=== PATIENT | male | born 1935 | race Caucasian/White ===

== ENCOUNTER 2018-09-02 06:19 | Day surgery (SDC) | payer OTHER ==
[2018-09-02] MEDS ORDERED: DIAZEPAM 5 MG TAB PO ONE (06:23)
[2018-09-02] MEDS ORDERED: FAMOTIDINE 20 MG TAB PO ONE (06:23)
[2018-09-02] MEDS ORDERED: ASPIRIN EC 325 MG TAB PO ONE (06:23)
[2018-09-02] MEDS ORDERED: diphenhydrAMINE 25 MG CAP PO ONE (06:23)
[2018-09-02] MEDS ORDERED: NS 1,000 ML IV ONE (06:23)
--- NOTE | 2018-09-02 06:25 | PDPROPOC ---
Sedation Plan of Care Sedation Plan of Care: mental status noted, patient educated of risks, benefits , alternatives, patient can tolerate sedation ASA Classification: ASA 2 Planned drugs: fentanyl, midazolam Mallampati Score: Class 2 Mallampati Reference Image: Patient passed 3-3-2 rule?: Yes
--- NOTE | 2018-09-02 06:26 | PDHPUP ---
History & Physical Update H&P update statement: This history and physical update is based on an assessment of the patient which was completed after admission or registration (within 24 hours), but prior to the surgery/procedure. H&P update: H&P reviewed & patient examined, no change in patient's condition since H&P completed
[2018-09-02] MEDS ORDERED: CLOPIDOGREL BISULFATE 75 MG TAB ONE (06:50)
[2018-09-02 06:54] LABS: PLATELET COUNT 130 10^3/uL (150-400)
[2018-09-02] MEDS ORDERED: LIDOCAINE 1% 300 MG/30 ML SDV ONE (07:01)
[2018-09-02] MEDS ORDERED: fentaNYL 100 MCG/2 ML INJ ONE (07:02)
[2018-09-02] MEDS ORDERED: IOPAMIDOL (ISOVUE-370) 150 ML BTL IV ONE (07:02)
[2018-09-02] MEDS ORDERED: MIDAZOLAM 2 MG/2 ML VIAL ONE (07:02)
[2018-09-02 07:03] LABS: INR 1.21 (0.83-1.16); PROTIME(PATIENT) 15.5 SEC (12.0-15.0)
[2018-09-02] MEDS ORDERED: HYDROCODONE/APAP 5/325 TAB PO PRN (08:39)
[2018-09-02] MEDS ORDERED: ONDANSETRON 4 MG/2 ML VIAL IVP PRN (08:39)
[2018-09-02] MEDS ORDERED: NITROGLYCERIN 0.4 MG BTL SL PRN (08:39)
[2018-09-02] MEDS ORDERED: OXYCODONE/APAP 5/325 TAB PO PRN (08:39)
[2018-09-02] MEDS ORDERED: ATROPINE SULFATE 1 MG/10 ML SYR IVP PRN (08:39)
[2018-09-02] MEDS ORDERED: CLOPIDOGREL BISULFATE 75 MG TAB PO SCH (09:00)
--- NOTE | 2018-09-02 13:22 | CPIP ---
[f rep st] INVASIVE CARDIAC PROCEDURE DATE OF PROCEDURE: 09/02/2018 INDICATION FOR PROCEDURE: Severe aortic stenosis, shortness of breath. PROCEDURE: 1. Nonselective left groin sheathogram. 2. 7-Swedish sheath left common vein. 3. Right heart catheterization using a [place]-Jabier catheter. 4. Bilateral coronary angiography. 5. Abdominal aortogram. HISTORY: Briefly, the patient is 83-year-old male with history of worsening shortness of breath. Herndon d an echocardiogram as an outpatient, which showed critical aortic stenosis. Given these findings, karely baugh is consented for right and left heart catheterization into anticipation for eventual AVR versu s TAVR. DESCRIPTION OF PROCEDURE: After informed consent, the patient was brought to [facility] where the left groin was prepped and draped in sterile fashion. Using lidocaine, a short 6-Swedish sheath in the left common femoral artery verified angiographically. 7-Swedish sheath placed in the le ft common femoral vein. [place]Jabier catheter was advanced. Wedge pressure was mean 19, A-wave 22, V-w ave 25. PA pressure systolic 41, diastolic 20, mean of 30. RV pressure systolic 38, diastolic 2, en d of 12. RA pressure mean of 9, A-wave 11, and V-wave 12. Cardiac output was measured to be 9.3 by Serenity with index of 4.7. The AO sat was 92%. PA sat was 75%. The [place]-Jabier catheter was then removed and the JL4 catheter was advanced to the left coronary artery . Images of the left coronary artery revealed normal prox left main. Distal left main had what appe ared to be a beak-like lesion at least 80% going into an LAD, ramus, and left circumflex artery. The left circumflex artery proximal had what appeared to be diffuse 70% disease, followed by the AV groo ve circumflex, which was normal. Just after the AV groove circumflex takeoff, there is another lesio n of 60% to 70%. Distally, the marginal 1 artery appeared to be widely patent, which bifurcated into 2 branches. The ramus intermedius had what appeared to be 20% to 30% disease proximally, but distal ly appeared to be widely patent. The LAD had what appeared to be a tubular, napkin ring lesion at le ast 50% at the takeoff of a diagonal artery. The diagonal artery had at least 60% to 70% proximal os tial disease. After these images were obtained, the JL4 catheter was removed. The JR4 catheter was advanced to right coronary artery. Images of the right coronary artery revealed normal ostial RCA. The proximal RCA had mild plaque disease. The mid RCA had a focal 80% to 90% le kennedy at the takeoff of an RV marginal branch. The distal RPD and RPLS appeared to be widely healthy and free of disease. After these images were obtained, the JR4 catheter was removed. The pigtail catheter advanced to the ascending aorta. Abdominal aortogram showed widely patent, but tortuous distal aorta, patent bilateral common, external, internal iliac arteries, patent bilateral c ommon femoral arteries. At this time, the pigtail catheter was removed over the 0.035 wire. Left gr oin was closed with manual pressure. Patient tolerated the procedure well with no complications. IMPRESSION: 1. Triple-vessel coronary artery disease in the form of distal left main, mid right coronary artery, proximal left circumflex artery, and moderate proximal left anterior descending disease, and high-gr sheldon diagonal artery disease. Normal cardiac output. 2. Patent aortoiliac conduits. PLAN: The patient will be taken off the table. We will obtain a carotid ultrasound. We will have t he patient discuss with CT surgery next week with Dr. Castillo at his followup appointment about CABG/AV R versus high-risk PCI/TAVR. /[id number]/MODL
== END 2018-09-02 12:25 | disposition home or self-care (01) ==
LOC: FCATH 06:19
PROVIDERS: ATTEND Internal Medicine Cardiovascular Disease
PROC: 4A023N8 Measurement of Cardiac Sampling and Pressure, Bilateral, Percutaneous Approach (ICD-10-PCS; principal; 2018-09-02)
PROC: B41D1ZZ Fluoroscopy of Aorta and Bilateral Lower Extremity Arteries using Low Osmolar Contrast (ICD-10-PCS; principal; 2018-09-02)
PROC: B2111ZZ Fluoroscopy of Multiple Coronary Arteries using Low Osmolar Contrast (ICD-10-PCS; principal; 2018-09-02)
PROC: B2161ZZ Fluoroscopy of Right and Left Heart using Low Osmolar Contrast (ICD-10-PCS; principal; 2018-09-02)
DX: I25.10 Atherosclerotic heart disease of native coronary artery without angina pectoris (principal); I35.0 Nonrheumatic aortic (valve) stenosis; R06.00 Dyspnea, unspecified; I12.0 Hypertensive chronic kidney disease with stage 5 chronic kidney disease or end stage renal disease; N18.6 End stage renal disease; Z99.2 Dependence on renal dialysis
CPT/HCPCS: J1644; J2250; J3010; Q9967

== ENCOUNTER → 2018-09-11 | Outpatient (CLI) | payer OTHER | LOC: FIMAGING 14:34 | PROVIDERS: ATTEND Thoracic Surgery (Cardiothoracic Vascular Surgery) | DX: I25.10 Atherosclerotic heart disease of native coronary artery without angina pectoris (principal); I35.0 Nonrheumatic aortic (valve) stenosis; I51.7 Cardiomegaly; J90 Pleural effusion, not elsewhere classified ==

== ENCOUNTER 2018-09-18 05:46 | Inpatient (IN) | payer OTHER ==
--- NOTE | 2018-09-17 11:04 | PDANEPAE ---
ANE History of Present Illness CAD, ANE Past Medical History - Cardiovascular History Hx Hypertension: Yes Hx Coronary Artery / Peripheral Vascular Disease: Yes Hx CHF / Valvular Disease: Yes Cardiovascular History Comment: CAD, - Pulmonary History Hx COPD: No Hx Asthma/Reactive Airway Disease: No Hx Recent Upper Respiratory Infection: No Hx Oxygen in Use at Home: No Hx Sleep Apnea: No - Neurologic History Hx Cerebrovascular Accident: No Hx Seizures: No Hx Dementia: No - Endocrine History Hx Diabetes: No Hypothyroid: No Hyperthyroid: No Obesity: no - Renal History Hx Renal Disorders: Yes Renal History Comment: ESRD - Liver History Hx Hepatic Disorders: No - Neurological & Psychiatric Hx Hx Neurological and Psychiatric Disorders: No - Cancer History Hx Cancer: No ANE Review of Systems Review of systems is: negative Review of Systems: ANE Patient History - Allergies Allergies/Adverse Reactions: Penicillins Allergy (Verified 08/28/18 11:10) Other-Enter Comments - Home Medications Home Medications: Aspirin [Aspirin 81mg (*)] 40.5 mg PO HS 08/28/18 [Last Taken 09/01/18 22:00] Cholecalciferol Vit D3 [Vitamin D3 2000 units tab (OTC)] 2,000 units PO DAILY [Last Taken 09/01/18 08:00] Herbals/Supplements -Info Only 1 ea PO DAILY 08/28/18 [Last Taken 09/01/18 08:00 ] Losartan Potassium [Cozaar 25 mg (*)] 25 mg PO DAILY 08/28/18 [Last Taken 05:00] Terazosin HCl [Hytrin 2 MG (*)] 4 mg PO HS 08/28/18 [Last Taken 09/01/18 22:00] amLODIPine BESYLATE [Norvasc 2.5 mg (*)] 2.5 mg PO HS 08/28/18 [Last Taken 09/01 22:00] - NPO status NPO Status: no food or drink >8 hours - Anes Hx Anes Hx: no prior problems - Smoking Hx Smoking Status: Never smoked Marijuana use: No - Alcohol Use Alcohol Use: Rarely - Family Anes Hx Family Anes Hx: none ANE Labs/Vital Signs - Labs Result Diagrams: 09/11/18 15:13 ANE Physical Exam - Airway Neck exam: FROM Mallampati Score: Class 2 Mouth exam: normal dental/mouth exam - Pulmonary Pulmonary: no respiratory distress, clear to auscultation - Cardiovascular Cardiovascular: regular rate and rhythym, no murmur, rub, or gallop - ASA Status ASA Status: IV ANE Anesthesia Plan Anesthesia Plan: general endotracheal anesthesia Lines/Monitors: arterial line, central line
[~2018-09-18 05:46] MED LIST: CHLORHEXIDINE GLUC HIBICLENS 118 ML BTL TP SCH
[2018-09-18] MEDS ORDERED: VERAPAMIL 5 MG, NITROGLYCERIN 2.5 MG, HEPARIN 500 UNIT, SODIUM BICARBONATE 0.2 MEQ in L... MISC ONE (06:00)
[2018-09-18] MEDS ORDERED: CARDIOPLEGIC SOLUTION 1,052.8 ML PF ONE (06:00)
[2018-09-18] MEDS ORDERED: INSULIN REGULAR HUMAN 100 UNIT in NS 100 ML IV ONE ×2 (06:00→09:30)
[2018-09-18] MEDS ORDERED: MUPIROCIN 2% 22 GM OINT NS ONE (06:00)
[2018-09-18] MEDS ORDERED: MANNITOL 25% 12.5 GM/50 ML VIAL IVP ONE (06:00)
[2018-09-18] MEDS ORDERED: NS 1,000 ML IV ONE (06:00)
[2018-09-18] MEDS ORDERED: PHENYLEPHRINE HCL 50 MG in NS 250 ML IV ONE ×3 (06:00→11:00)
[2018-09-18] MEDS ORDERED: LIDOCAINE 1% 2 ML INJ ID PRN (06:00)
[2018-09-18] MEDS ORDERED: AMINOCAPROIC ACID 5 GM/20 ML VIAL IV ONE (06:00)
[2018-09-18] MEDS ORDERED: VANCOMYCIN PHARMACY TO DOSE MISC ONE (06:00)
[2018-09-18] MEDS ORDERED: niCARdipine/NACL 200 ML IV ONE (06:00)
[2018-09-18] MEDS ORDERED: VANCOMYCIN 1.25 GM in NS 250 ML IV ONE (06:00)
[2018-09-18] MEDS ORDERED: NOREPINEPHRINE BITARTRATE 16 MG in NS 250 ML IV ONE (06:00)
[2018-09-18] MEDS ORDERED: CITRATE DEXTROSE SOLN 500 ML BAG MISC ONE (06:00)
[2018-09-18] MEDS ORDERED: PAPAVERINE HCL 60 MG in NS 100 ML IV ONE (06:00)
[2018-09-18] MEDS ORDERED: AMINOCAPROIC ACID 5 GM/20 ML VIAL ONE ×2 (06:03→06:05)
[2018-09-18] MEDS ORDERED: MILRINONE/DEXTROSE/100 ML BAG IV ONE (06:03)
[2018-09-18] MEDS ORDERED: PROTAMINE SULFATE 50 MG/5 ML VIAL IVP ONE (06:03)
[2018-09-18] MEDS ORDERED: NA BICARBONATE 50 MEQ/50 ML VIAL ONE ×2 (06:03→14:44)
[2018-09-18] MEDS ORDERED: CALCIUM CHLORIDE 1 GM/10 ML INJ ONE ×2 (06:03→06:05)
[2018-09-18] MEDS ORDERED: AMIODARONE HCL 150 MG/3 ML VIAL ONE ×2 (06:04→06:06)
[2018-09-18] MEDS ORDERED: DOPamine/DEXTROSE 400 MG/250 ML BAG IV ONE ×2 (06:04→18:04)
[2018-09-18] MEDS ORDERED: HEPARIN 10,000 UNIT/10 ML MDV (1,000 UNIT/ML) ONE ×5 (06:04→07:06)
[2018-09-18] MEDS ORDERED: niCARdipine/NACL/200 ML BAG IV ONE (06:04)
[2018-09-18] MEDS ORDERED: ADENOSINE 6 MG/2 ML VIAL ONE (06:04)
[2018-09-18] MEDS ORDERED: NITROGLYCERIN/D5W 50 MG/250 ML BOTTLE IV ONE (06:04)
[2018-09-18] MEDS ORDERED: ceFAZolin 1 GM VIAL ONE (06:04)
[2018-09-18] MEDS ORDERED: SODIUM BICARBONATE 50 MEQ/50 ML SYR ONE ×2 (06:05→13:07)
[2018-09-18] MEDS ORDERED: ALBUMIN 5% 250 ML BOTTLE IV ONE ×2 (06:05→12:47)
[2018-09-18] MEDS ORDERED: LIDOCAINE 2% 100 MG/5 ML SYR ONE ×2 (06:05→07:04)
[2018-09-18] MEDS ORDERED: CITRATE DEXTROSE SOLN 500 ML BAG ONE (06:06)
[2018-09-18] MEDS ORDERED: MAGNESIUM SULFATE 1 GM/2 ML VIAL ONE (06:06)
[2018-09-18] MEDS ORDERED: LR 1,000 ML IV ONE (06:06)
[2018-09-18] MEDS ORDERED: methylPREDNISolone SOD SUCC 1 GM/8 ML VIAL ONE (06:06)
--- NOTE | 2018-09-18 06:47 | PDHPUP ---
History & Physical Update H&P update statement: This history and physical update is based on an assessment of the patient which was completed after admission or registration (within 24 hours), but prior to the surgery/procedure. H&P update: H&P reviewed & patient examined, changes noted H&P changes: worsening CP/SOB
[2018-09-18] MEDS ORDERED: PAPAVERINE HCL 60 MG/2 ML SDV ONE (06:58)
[2018-09-18] MEDS ORDERED: VERAPAMIL 5 MG/2 ML VIAL ONE (06:59)
[2018-09-18] MEDS ORDERED: fentaNYL 250 MCG/5 ML INJ ONE (07:05)
[2018-09-18] MEDS ORDERED: MIDAZOLAM 2 MG/2 ML VIAL ONE (07:05)
[2018-09-18] MEDS ORDERED: PROPOFOL 200 MG/20 ML VIAL ONE (07:05)
[2018-09-18] MEDS ORDERED: ROCURONIUM 100 MG/10 ML VIAL ONE (07:06)
[2018-09-18 07:07] LABS: PLATELET COUNT 135 10^3/uL (150-400)
[2018-09-18] MEDS ORDERED: METOPROLOL TARTRATE 5 MG/5 ML INJ ONE (07:51)
[2018-09-18] MEDS ORDERED: FUROSEMIDE 20 MG/2 ML VIAL ONE ×5 (08:49→08:51)
[2018-09-18] MEDS ORDERED: MINERAL OIL 10 ML VIAL ONE (11:02)
[2018-09-18] MEDS ORDERED: ONDANSETRON 4 MG/2 ML VIAL ONE (11:29)
[2018-09-18] MEDS ORDERED: PHENYLEPHRINE HCL 100 MCG/ML SYR ONE ×2 (11:39)
[2018-09-18] MEDS ORDERED: ePHEDrine SULFATE 25 MG/5 ML SYR ONE (11:39)
[2018-09-18] MEDS ORDERED: GLYCOPYRROLATE 0.2 MG/1 ML VIAL ONE ×2 (11:58)
[2018-09-18] MEDS ORDERED: NEOSTIGMINE METHYLSULFATE 5 MG/5 ML SYR ONE (11:58)
[2018-09-18] MEDS ORDERED: NALOXONE HCL 0.4 MG/ML INJ IVP PRN (12:15)
--- NOTE | 2018-09-18 12:16 | POSTANESTH ---
Post Anesthetic Evaluation Cardiovascular Status: Normal, Stable Respiratory Status: Normal, Stable Level of Consciousness/Mental Status: Mildly Sleepy, Arousable Pain Control: Adequate, Prn Tx Ordered Nausea/Vomiting Control: Adequate, Prn Tx Ordered Complications Possibly Related to Anesthesia: None Noted
[2018-09-18] MEDS ORDERED: MEPERIDINE 25 MG/0.5 ML AMP IVP PRN (12:29)
[2018-09-18] MEDS ORDERED: POLYETHYLENE GLYCOL 3350 17 GM PKT PO PRN (12:29)
[2018-09-18] MEDS ORDERED: METOCLOPRAMIDE 10 MG/2 ML VIAL IVP PRN (12:29)
[2018-09-18] MEDS ORDERED: SODIUM CL NASAL 45 ML BTL EACHNARE PRN (12:29)
[2018-09-18] MEDS ORDERED: LACTULOSE 20 GM/30 ML UDCUP PO PRN (12:29)
[2018-09-18] MEDS ORDERED: fentaNYL 100 MCG/2 ML INJ IVP PRN (12:29)
[2018-09-18] MEDS ORDERED: D50W 25 GM/50 ML SYR IVP PRN (12:29)
[2018-09-18] MEDS ORDERED: ONDANSETRON DISINTEGRATING 4 MG TAB PO PRN (12:29)
[2018-09-18] MEDS ORDERED: CEPACOL LOZENGE PO PRN (12:29)
[2018-09-18] MEDS ORDERED: ONDANSETRON 4 MG/2 ML VIAL IVP PRN (12:29)
[2018-09-18] MEDS ORDERED: ACETAMINOPHEN 650 MG SUPP PR PRN (12:29)
[2018-09-18] MEDS ORDERED: PANTOPRAZOLE SODIUM 40 MG VIAL IVP ONE (12:29)
[2018-09-18] MEDS ORDERED: BISACODYL 10 MG SUPP PR PRN (12:29)
[2018-09-18] MEDS ORDERED: NS 1,000 ML IV SCH (12:30)
[2018-09-18] MEDS ORDERED: VANCOMYCIN HCL/NORMAL SALINE 250 ML IV SCH (12:30)
[2018-09-18] MEDS ORDERED: niCARdipine/NACL 200 ML IV SCH (12:30)
[2018-09-18] MEDS ORDERED: INSULIN REGULAR HUMAN 100 UNIT in NS 100 ML IV SCH (12:30)
--- NOTE | 2018-09-18 12:59 | PDMN ---
Medical Necessity Medical necessity: MCG: S390 CABG 4 days : OP: CABG X4, ... AUTH# [id number] APPROVED FOR CPT CODE 93711 AND 09060 TO BE DONE INPATIENT. 2 DAYS LOS.
[2018-09-18] MEDS ORDERED: FLUMAZENIL 0.5 MG/5 ML MDV IVP ONE ×3 (13:27→14:00)
[2018-09-18] MEDS ORDERED: NALOXONE HCL 0.4 MG/ML INJ ONE (13:30)
--- NOTE | 2018-09-18 13:35 | GCON ---
[f rep st] CONSULTATION PERSONNEL PLACEMENT SPECIALIST CONSULTATION Patient examined postoperatively after receiving coronary artery bypass graft and aortic valve replac I was asked to see the patient by Dr. Des Castillo. The patient is an 83-year-old white male with extensive past medical history including osteoarthritis, chronic renal insufficiency requiring p eritoneal dialysis, hypertension, and cataracts. He had a known history of severe aortic stenosis. Was subsequently found to have 3-vessel disease. He underwent aortic valve replacement and coronary artery bypass graft. He was extubated postoperatively. There were some minimal blood pressure probl ems at the end of the operation. Currently, he is still sedated but not on mechanical ventilation. All history is gleaned from the medical record. REVIEW OF SYSTEMS: 10-point review of systems was attempted but unable to be performed secondary to sedation. PAST MEDICAL HISTORY: Significant for chronic renal insufficiency on peritoneal dialysis, hypertensi on, osteoarthritis. ALLERGIES: Penicillin. FAMILY HISTORY: Significant for coronary artery disease and hypertension. SOCIAL HISTORY: Lifelong never smoker. No significant alcohol use. MEDICATIONS: At home include: Amlodipine, iron, losartan, Maria Victoria-Hugo, terazosin, Tums, vitamin D. PHYSICAL EXAM: VITAL SIGNS: Blood pressure 137/77, pulse 83, respirations 13, temperature is 36.7, oxygen saturation 94% on supplemental oxygen. GENERAL: He is a well-developed, well-nourished, elde rly white male who is resting comfortably in no acute distress. HEENT: Eyes are PERRLA, EOMI. Thro at is deferred secondary to oxygen mask. NECK: Supple. No cervical adenopathy. HEART: Regular ra te and rhythm with a 2/6 systolic murmur at the left sternal border without radiation. LUNGS: Dimin ished breath sounds. Few bibasilar crackles but no wheeze. ABDOMEN: Soft, nontender. Bowel sounds present in all 4 quadrants. Peritoneal dialysis catheter is in good position. EXTREMITIES: No clu bbing, cyanosis, or edema. LABORATORIES: White count is 4.9, hemoglobin 9.3, hematocrit 28, platelet count is 135. Sodium 139, potassium 4.2, chloride 108, CO2 is 21, BUN is 64, creatinine 8.3, glucose is 102. IMPRESSION: 1. Coronary artery disease. 2. Aortic stenosis. 3. Status post aortic valve replacement and coronary artery bypass graft. 4. End-stage renal disease, on peritoneal dialysis. 5. History of osteoarthritis. 6. History of hypertension. RECOMMENDATIONS: 1. Adequate pain control. 2. DVT and PE prophylaxis, holding anticoagulation now. 3. Wean FiO2 as tolerated. 4. Agree with nephrology consultation. 5. Early ambulation. 6. PT and OT. 7. Close cardiovascular monitoring. 8. Follow labs closely. /[id number]/MODL
[2018-09-18] MEDS ORDERED: NALOXONE HCL 0.4 MG/ML INJ IVP ONE ×2 (14:00)
[2018-09-18] MEDS ORDERED: SODIUM BICARBONATE 50 MEQ/50 ML SYR IVP ONE (14:00)
--- NOTE | 2018-09-18 14:35 | GCON ---
[f rep st] CONSULTATION REASON FOR CONSULTATION: Opinion regarding end-stage kidney failure. HISTORY OF PRESENT ILLNESS: The patient is an 83-year-old, previously active gentleman with end-stag e kidney failure, on peritoneal dialysis, he also has a functional left upper arm arteriovenous fistu la. He was complaining of decreased energy and fatigue. Echocardiogram showed severe aortic stenosi s, cardiac catheterization subsequently revealed severe 4 vessel coronary artery disease. Mr. Francy brambila was taken to the operating room today by Dr. Castillo for a 4 vessel bypass and aortic valve replaceme nt. The surgery was successful, he has been transferred back to the intensive care unit for further evaluation and management. The patient is not able to answer questions. PAST MEDICAL HISTORY: Significant for: 1. End-stage kidney failure on peritoneal dialysis. 2. Hypertension. 3. Osteoarthritis. 4. History of squamous cell carcinoma. 5. Severe aortic stenosis. 6. Coronary artery disease. ALLERGIES: To sulfa, garlic, and amoxicillin. FAMILY HISTORY: Noncontributory. SOCIAL HISTORY: Denies tobacco, alcohol, IV or recreational drugs, he lives independently in [facility]. CURRENT MEDICATIONS: Include: 1. Tylenol. 2. Hydrocodone. 3. Aspirin 81 mg a day. 4. Insulin. 5. Demerol. 6. Reglan. 7. Morphine. 8. Protonix 40 mg daily. 9. MiraLAX. 10. Vancomycin. HOME MEDICATIONS: Include: 1. Amlodipine 2.5 mg a day. 2. Terazosin 2 mg daily. 3. Tums with each meal. 4. Vitamin D3 2000 international units daily. 5. Losartan 25 mg daily. REVIEW OF SYSTEMS: Is not obtainable from the patient. PHYSICAL EXAMINATION: VITAL SIGNS: Blood pressure 137/77, pulse 83, respirations 18, temperature 36. 7 degrees. Urine output none. GENERAL: He is not answering questions, he is somewhat sedated. HEEN T: Pupils are reactive to light. Extraocular movements are intact. Mucous membranes are somewhat dr y. NECK: No lymphadenopathy or thyromegaly. HEART: Regular, 1/6 systolic murmur. No rub. LUNGS: Po or inspiratory effort. No rhonchi or wheezes. ABDOMEN: Quiet, nontender, nondistended. He has perit ray dialysis catheter in place. EXTREMITIES: Cool. No significant edema. NEUROLOGIC: No asterixis . SKIN: No unusual rashes or lesions. LYMPHATICS: No palpable lymphadenopathy or lymphedema. MUSCULOS KELETAL: No effusions or tenderness. LABORATORY: WBC 4.95, hemoglobin 9.3, hematocrit 28, platelet count 135,000. Serum sodium is 139, p otassium 4.2, chloride 108, CO2 21, BUN 64, creatinine 8.3, glucose 102, calcium 8.4. IMPRESSION: 1. End-stage kidney failure, on peritoneal dialysis and has been doing well with that. 2. Left upper arm arteriovenous fistula that looks quite usable. 3. Immediately postoperative coronary artery bypass grafting x4 and aortic valve replacement. 4. History of hypertension. 5. History of squamous cell carcinoma. RECOMMENDATIONS: 1. I have discussed the situation with Dr. Castillo, peritoneal dialysis will be put on hold for at [facility] 4 weeks to let things heal up. 2. We will assess needs for dialysis on a day-to-day basis. We will be following his laboratory magdy sely, his most recent potassium is 4.2 with a CO2 of 21, there are no urgent dialysis needs at this p oint. 3. We will continue to follow his electrolytes, volume status and acid-base status closely. Thank you for allowing me to participate in the care of your patient. If there are any questions, pl ease do not hesitate to contact us. We will be following along with you. /[id number]/MODL
[2018-09-18] MEDS: ALBUMIN 5% 250 ML IV PRN (14:48)
[2018-09-18] MEDS ORDERED: PANTOPRAZOLE SODIUM 40 MG VIAL ONE (15:32)
--- NOTE | 2018-09-18 16:20 | GOP ---
[f rep st] OPERATIVE REPORT DATE OF OPERATION: 09/18/2018 SURGEON: Des Castillo DO CROSSBAND LAYER: executive marketing assistant was Miguel A Warren PA-C. ANESTHESIOLOGIST: Dr. Bernstein. PREOPERATIVE DIAGNOSIS: 1. Aortic stenosis, aortic insufficiency. 2. Mild mitral insufficiency. 3. Diffuse severe 3-vessel coronary artery disease. POSTOPERATIVE DIAGNOSIS: 1. Aortic stenosis, aortic insufficiency. 2. Mild mitral insufficiency. 3. Diffuse severe 3-vessel coronary artery disease. PROCEDURE PERFORMED: 1. Aortic valve replacement with a #25 Magna bioprosthesis. 2. Coronary bypass grafting x4 with the left internal mammary artery to the left anterior descending , saphenous vein graft to the 1st obtuse marginal, saphenous vein graft to the 2nd obtuse marginal, a nd saphenous vein graft to the right coronary artery. 3. Ligation of left atrial appendage. 4. Endoscopic vein harvest by Miguel A Warren PA-C. FINDINGS: Patient was referred for symptoms of angina with known aortic stenosis. He was initially evaluated for TAVR. However, at diagnostic cath he was found to have severe tight left main and osti al circ and LAD disease as well as a tight mid right lesion. For that reason was referred for CT shaheen john. He had worsening crescendo angina prior to surgery. DESCRIPTION OF PROCEDURE: He was consented, brought to the operating room, intubated. Monitoring li miki were placed. He was prepped and draped in sterile classical manner. Endoscopic vein was harvest ed from the leg by Aditya Warren PA-C, who then first assisted throughout the procedure. A sternotomy was performed. An excellent quality mammary was harvested. The aorta was mildly enlarged at 3 cm. It was cannulated. There was no evidence of plaque or thickening on echo. Bypass was begun. Becau se of his aortic insufficiency an LV sump was placed, and we then arrested the heart with retrograde cardioplegia, topical hypothermia, and then direct coronary perfusion down grafts once completed. Th is was done intermittently per Graeme Araizao protocol as well as additional intermittent cardioplegia. We also cooled him to approximately 34 degrees. Initially all distals were performed. The distal vess els were all good quality and good size. The conduits were excellent. We then ligated the left atri al appendage which was a narrow appendage at the base with ligatures. I then performed an aortotomy, removed the trileaflet heavily calcified valve. Anulus was debrided. LV chamber was irrigated. CO 2 was infused. A 25 mm Magna valve was sutured in place in a supra-annular position. Aortotomy was closed in a 2-layer fashion. The proximal anastomoses were completed. The cross-clamp was then anthony ashish with suction on the ascending aortic vent. Spontaneous cardiac activity was noted to resume. He was weaned from bypass. Echo revealed unchanged LV function with good valvular function and no aort ic insufficiency. Heparin was reversed with protamine. The cannula was removed and oversewn. Two v entricular pacing wires, 2 pleural and 1 mediastinal drain were placed. The thymic fat and pericardi um were closed. Chest was closed in standard fashion. Patient was returned to ICU in stable conditi on. /[id number]/MODL
--- NOTE | 2018-09-18 18:32 | CPEKG ---
Test Reason : OPEN Blood Pressure : / mmHG Vent. Rate : 088 BPM Atrial Rate : 091 BPM P-R Int : 205 ms QRS Dur : 119 ms QT Int : 444 ms P-R-T Axes : -06 -26 123 degrees QTc Int : 538 ms Sinus rhythm First degree AV block LVH with IVCD and secondary repol abnrm Prolonged QT interval Confirmed by Salvador López ([id number]) on 09/18/2018 6:32:18 PM Referred By: Des Castillo Confirmed By:Salvador López
[2018-09-18] MEDS: HYDROCODONE/APAP 5/325 TAB PO PRN (19:26)
[2018-09-18] MEDS: VANCOMYCIN HCL/NORMAL SALINE 250 ML IV SCH (19:27)
[2018-09-18] MEDS: SENNOSIDES/DOCUSATE SODIUM TAB PO SCH (21:12)
[2018-09-18] MEDS: MUPIROCIN 2% 22 GM OINT NS SCH (21:18)
[2018-09-19 04:16] LABS: PLATELET COUNT 72 10^3/uL (150-400)
[2018-09-19 04:28] LABS: INR 1.63 (0.83-1.16); PROTIME(PATIENT) 18.6 SEC (12.0-15.0)
[2018-09-19] MEDS: HYDROCODONE/APAP 5/325 TAB PO PRN (04:30)
[2018-09-19] MEDS: ALBUMIN 5% 250 ML IV PRN (04:38)
[2018-09-19] MEDS ORDERED: HEPARIN 5,000 UNIT/0.5 ML INJ SC SCH (06:00)
[2018-09-19] MEDS: VANCOMYCIN HCL/NORMAL SALINE 250 ML IV SCH ×2 (06:57→19:48)
[2018-09-19] MEDS ORDERED: ALBUMIN 5% 250 ML IV ONE (07:00)
--- NOTE | 2018-09-19 08:27 | SOAPPROG ---
SOAP Progress Note Assessment/Plan: Assessment: POD#1 AVR#25 Magna bioprosthesis, CABG x 4 (REYES-LAD, SV-OM1, SV-OM2 , SV-RCA), endoscopic eval of BLE vein - only rt leg harvested, prophylactic suture ligation NATO Sx severe CAD w preserved LV systolic fx - Fully revascularized with CABG. PostCPB coagulopathy and vasoplegia supported with IVF/levo/dopa. Successful wean off levo yest afternoon. Dopa wean to 6 mcg with stable hemodynamics overnight. No tachyarrhythmias. No sig volume overload. Secondary prevention with ASA, BB and statin when appropriate. Severe /AI - s/p tissue AVR. Antithrombotic prophylaxis with ASA alone, pending stability of rhythm. AF prophylaxis with BB when appropriate. Acute expected blood loss anemia with thrombocytopenia and coagulopathy - Stable s/p 3u PRBC. Remains mildly auto-anticoagulated with elevated but thin drainage. No evidence active bleeding. VTE prophylaxis with SCDs while INR elev and platelets depressed. ESRD on PD - Nephrology following. PD on hold pending x 4 weeks while sternotomy /CT sites healing. Mature LUE AVF available if needed. Hx HTN - Preop control with combination therapy. Preferential use of BB when appropriate with staggered reintro of remaining meds as tolerated. Plan: Routine POD#1 orders re drains, wires, orals and mobility. Wean dopa to SBP > 100. Colloid (favor PRBC or FFP) for CVP < 12. Toscano per nephrology. Observe in ICU today. 09/19/18 08:22 Subjective: Doing alright. A little woozy getting OOB, comfortable sitting in chair. Pain controlled. Thirsty. Objective: Vital Signs Temp Pulse Resp BP Pulse Ox 35 C L 80 16 110/45 L 92 09/19/18 04:00 09/19/18 08:00 09/19/18 08:00 09/19/18 08:00 09/19/18 08:00 Laboratory Results 09/19/18 04:05 09/19/18 04:05 09/18/18 09/19/18 09/20/18 05:59 05:59 05:59 Intake Total 2667 Output Total 1415 Balance 1252 PT 18.6 SEC (12.0-15.0) H 09/19/18 04:05 INR 1.63 (0.83-1.16) H 09/19/18 04:05 Dopa weaned from 15 mcg to 6 mcg last pm. SBPs > 100 maintained with some UOP and stable K, Cr. Fluid balance only +3.6 kg. CXR -> no PTX, no sig pulm vasc congestion, small left pleural effusion with bibasilar atelectasis. CTOP 440 last shift, INR 1.6, plt stable in 70 range. Physical Exam - Physical Exam General Appearance: alert, no apparent distress Respiratory: crackles (coarse throughout), other (blakes x 3 y-d to pleurovac, thin sanguinous drainage, no air leak) Cardiac/Chest: regular rate, rhythm, other (Sternotomy CDI. V wires intact.) Abdomen: normal bowel sounds, non-tender, soft Skin: warm/dry Extremities: swelling (Trace-1+ gen), other (RLE wrap intact, LLE thigh incision CDI) ICD10 Worksheet Patient Problems: Problems Problem Status Onset Acute on chronic blood loss anemia Acute Aortic valve stenosis with insufficiency Acute ESRD (end stage renal disease) on dialysis Acute S/P CABG x 4 Acute S/P aortic valve replacement with bioprosthetic valve Acute Status post ligation of left atrial appendage Acute
[2018-09-19] MEDS: SENNOSIDES/DOCUSATE SODIUM TAB PO SCH ×2 (08:28→20:54)
[2018-09-19] MEDS: PANTOPRAZOLE SODIUM 40 MG TAB PO SCH (08:28)
[2018-09-19] MEDS: ASPIRIN 81 MG CHEWABLE TAB PO SCH (08:28)
[2018-09-19] MEDS: MUPIROCIN 2% 22 GM OINT NS SCH ×2 (08:57→20:55)
--- NOTE | 2018-09-19 09:40 | PDINTPN ---
Dice Table Operator Progress Note Assessment/Plan: Assessment/plan: * Severe aortic stenosis * Coronary artery disease * Status post aortic valve replacement and coronary artery bypass graft * End-stage renal failure-on peritoneal dialysis -per Nephrology * Pain-well controlled * Hypertension * Acute hypoxemic respiratory failure-markedly improved -wean FiO2 as tolerated * PT/OT * Adequate nutrition Subjective: Sitting up in chair. Resting comfortably. Only pain when he moves or takes a deep breath. Objective: Vital Signs Temp Pulse Resp BP Pulse Ox 35 C L 72 18 108/45 L 91 L 09/19/18 04:00 09/19/18 08:55 09/19/18 08:55 09/19/18 08:55 09/19/18 08:55 Laboratory Results 09/19/18 04:05 09/19/18 08:30 09/18/18 09/19/18 09/20/18 05:59 05:59 05:59 Intake Total 2667 Output Total 1415 Balance 1252 PT 18.6 SEC (12.0-15.0) H 09/19/18 04:05 INR 1.63 (0.83-1.16) H 09/19/18 04:05 - Time Spent With Patient Time Spent With Patient: 35 min of time spent with patient, over 1/2 involved with coordination of care or counseling. Case discussed with nursing Physical Exam - Physical Exam General Appearance: alert, no apparent distress EENT: PERRL/EOMI Neck: non-tender, supple Respiratory: crackles (Bibasilar), No accessory muscle use, No wheezing Cardiac/Chest: normal peripheral pulses, regular rate, rhythm Peripheral Pulses: 2+: carotid (R), carotid (L), femoral (R), femoral (L), dorsalis-pedis (R), dorsalis-pedis (L) Abdomen: normal bowel sounds, non-tender, soft Male Genitalia: deferred Rectal: deferred Skin: normal color, warm/dry Extremities: non-tender Neuro/Psych: alert, normal mood/affect, oriented x 3 ICD10 Worksheet Patient Problems: Problems Problem Status Onset Acute on chronic blood loss anemia Acute Aortic valve stenosis with insufficiency Acute ESRD (end stage renal disease) on dialysis Acute S/P CABG x 4 Acute S/P aortic valve replacement with bioprosthetic valve Acute Status post ligation of left atrial appendage Acute
[2018-09-19] MEDS ORDERED: FUROSEMIDE 100 MG/10 ML VIAL ONE (10:42)
[2018-09-19] MEDS ORDERED: FUROSEMIDE 100 MG/10 ML VIAL IVP ONE (10:45)
[2018-09-19] MEDS: traMADol 50 MG TAB PO PRN ×2 (11:04→19:48)
[2018-09-19] MEDS ORDERED: D50W 25 GM/50 ML SYR IVP ONE (13:06)
[2018-09-19] MEDS ORDERED: INSULIN REGULAR HUMAN 100 UNIT/ML UNIT ONE (13:11)
[2018-09-19] MEDS ORDERED: CALCIUM CHLORIDE 1 GM/10 ML INJ IVP ONE (13:15)
[2018-09-19] MEDS ORDERED: INSULIN REGULAR HUMAN 100 UNIT/ML UNIT IV ONE (13:15)
[2018-09-19] MEDS ORDERED: D50W 25 GM/50 ML VIAL IVP ONE (13:15)
[2018-09-19] MEDS ORDERED: SODIUM POLY SULF 15 GM/60 ML BOTTLE PO ONE ×2 (13:15→13:30)
[2018-09-19] MEDS ORDERED: NOREPINEPHRINE/NS 500 ML IV SCH (16:00)
[2018-09-19] MEDS ORDERED: NOREPINEPHRINE BITARTRATE 4 MG in NS 500 ML IV SCH (16:00)
--- NOTE | 2018-09-19 16:41 | SOAPPROG ---
SOAP Progress Note Assessment/Plan: Assessment/Plan: 83 yo M with PMH significant for ESRD on PD (followed by Dr. Richardson at [facility]), HTN, osteoarthritis admitted to ICU after 4 vessel CABG on 09/18. # ESRD- was on chronic PD, transitioning to HD until things heal up. Has AVF that has never been used --HD on 09/19, will tentatively plan TTS schedule for now, but will assess labs daily --On Friday, will need to check with [facility] to see if referral has already been made for HD # Hyperkalemia-- K up o 6.4 on afternoon of 09/19 --1K bath x 1 hr followed by 2K bath --Reassess HD needs daily # Hypotension- on dopamine, seen on HD, even without fluid removal BP trending down, started low dose Levophed # Volume status- total body volume up, but likely third spacing after surgery --Dr. Castillo requests no fluid removal on 09/[address] Martinez, Dr. Castillo, and bedside nurse >35 min spent on the care of this patient with >50% of time spent on counseling and coordination of care Subjective: Pain from sternotomy site. Denies feeling short of breath. Pain with breathing. Normally makes urine. Decreased urine output after surgery. Objective: Vital Signs Temp Pulse Resp BP Pulse Ox 35.6 C L 80 12 102/37 L 94 09/19/18 11:00 09/19/18 16:00 09/19/18 16:00 09/19/18 16:00 09/19/18 16:00 Laboratory Results 09/19/18 04:05 09/19/18 12:10 09/18/18 09/19/18 09/20/18 05:59 05:59 05:59 Intake Total 2667 Output Total 1415 Balance 1252 PT 18.6 SEC (12.0-15.0) H 09/19/18 04:05 INR 1.63 (0.83-1.16) H 09/19/18 04:05 Exam- General- awake, alert, well-appearing, NAD Eyes- anicteric sclera, no conjunctival edema HEENT- MMM, no gross oral lesions CV- NRRR, no g/m/r, midline sternotomy c/d/i, drains in place Pulm- Anterior lung kay CTAB. + use of accessory muscles Extrem- 1-2+ LE edema, LUE AVF with good bruit and thrill Psych- pleasant, answers questions appropriately Neuro- CN II-XII grossly intact, moves extremities ICD10 Worksheet Patient Problems: Problems Problem Status Onset Acute on chronic blood loss anemia Acute Aortic valve stenosis with insufficiency Acute ESRD (end stage renal disease) on dialysis Acute S/P CABG x 4 Acute S/P aortic valve replacement with bioprosthetic valve Acute Status post ligation of left atrial appendage Acute
--- NOTE | 2018-09-19 17:28 | ASMTCMCOM ---
CM Note CM Note Notes: Pt in ICU s/p 4 vessel CABG. Dc needs uncertain, CM will follow. DC Plan: TBD Date Signed: 09/19/2018 05:28 PM Electronically Signed By:Nu Bourgeois RN
[2018-09-19] MEDS ORDERED: LIDOCAINE 1% *Not for Epidural 20 ML MDV ONE (20:30)
[2018-09-19] MEDS: TERAZOSIN HCL 2 MG CAP PO SCH (20:54)
[2018-09-19] MEDS: ACETAMINOPHEN 325 MG TAB PO PRN (23:49)
[2018-09-20 04:43] LABS: PLATELET COUNT 53 10^3/uL (150-400)
[2018-09-20 05:24] LABS: INR 1.46 (0.83-1.16); PROTIME(PATIENT) 17.1 SEC (12.0-15.0)
[2018-09-20] MEDS: ACETAMINOPHEN 325 MG TAB PO PRN (07:42)
[2018-09-20] MEDS: PANTOPRAZOLE SODIUM 40 MG TAB PO SCH (07:52)
[2018-09-20] MEDS: ASPIRIN 81 MG CHEWABLE TAB PO SCH (07:53)
[2018-09-20] MEDS: SENNOSIDES/DOCUSATE SODIUM TAB PO SCH ×2 (07:54→20:34)
[2018-09-20] MEDS: MUPIROCIN 2% 22 GM OINT NS SCH (08:29)
--- NOTE | 2018-09-20 08:35 | SOAPPROG ---
SOAP Progress Note Assessment/Plan: Assessment: POD#2 AVR#25 Magna bioprosthesis, CABG x 4 (REYES-LAD, SV-OM1, SV-OM2 , SV-RCA), endoscopic eval of BLE vein - only rt leg harvested, prophylactic suture ligation NATO Sx severe CAD w preserved LV systolic fx - Fully revascularized with CABG. PostCPB coagulopathy and vasoplegia supported with IVF/levo/dopa. Slow but steady wean of pressors, down to 2 mcg dopa. No delay in extubation. No tachyarrhythmias. Moderate volume overload well tolerated. Secondary prevention with ASA, BB and statin when appropriate. Severe /AI - s/p tissue AVR. Antithrombotic prophylaxis with Coumadin when coagulopathy fully resolved. Target INR 2-3, duration 8 wks. AF prophylaxis with BB when appropriate. Acute expected blood loss anemia with thrombocytopenia and coagulopathy - Stable s/p 4u PRBC. Remains mildly auto-anticoagulated without elevated CTOP. VTE prophylaxis with SCDs while INR elev and platelets depressed. ESRD on PD - Nephrology following. PD on hold x 4 weeks while sternotomy/CT sites heal. Mature LUE AVF available if needed. Hx HTN - Preop control with combination therapy. Preferential use of BB when appropriate, with staggered reintro of remaining meds as tolerated. Plan: Mediastinal drain removed. Cont dopa for SBP > 100. Lasix vs UF for volume removal. Decrease ASA to home dose of 40.5 mg daily. Hold for plt count < 50. Ck HIT. Cont ICU monitoring. 09/20/18 08:34 Subjective: Exhausted. Poor sleep d/t proximity to central core and persistent alarms overnoc. Objective: Vital Signs Temp Pulse Resp BP Pulse Ox 36.5 C 88 14 110/39 L 96 09/20/18 08:00 09/20/18 08:00 09/20/18 08:00 09/20/18 08:00 09/20/18 08:00 Laboratory Results 09/20/18 04:35 09/20/18 04:35 09/19/18 09/20/18 09/21/18 05:59 05:59 05:59 Intake Total 2667 2042 Output Total 1415 515 Balance 1252 1527 PT 17.1 SEC (12.0-15.0) H 09/20/18 04:35 INR 1.46 (0.83-1.16) H 09/20/18 04:35 SBPs 100s-110s on dopa 2 mcg. Holding SR with occ PAC/PVC. Stable 3 lpm suppl O2 req. CTOP approaching removal criteria. Positive fluid balance. +5 kg overall. CXR-> no sig pulm vasc congestion, improved basilar aeration. Downward plt and INR drift. K, Cr ok. Physical Exam - Physical Exam General Appearance: alert, no apparent distress Respiratory: wheezing (expiratory), other (blakes x 3 to bulb suction, thin sanguinous drainage; mediastinal drain removed without incident) Cardiac/Chest: regular rate, rhythm, other (Sternotomy CDI. Vwires intact.) Abdomen: normal bowel sounds, non-tender, soft, other (PD cath intact) Skin: warm/dry Extremities: swelling (1-2+ gen), other (Bilat leg incisions CDI) ICD10 Worksheet Patient Problems: Problems Problem Status Onset Acute on chronic blood loss anemia Acute Aortic valve stenosis with insufficiency Acute ESRD (end stage renal disease) on dialysis Acute S/P CABG x 4 Acute S/P aortic valve replacement with bioprosthetic valve Acute Status post ligation of left atrial appendage Acute
--- NOTE | 2018-09-20 09:34 | PDINTPN ---
Surgical Endoscopist Progress Note Assessment/Plan: Assessment/plan: * Severe aortic stenosis * Coronary artery disease * Status post aortic valve replacement and coronary artery bypass graft * End-stage renal failure-on dialysis. Fluid overload -per Nephrology * Pain-reasonably well controlled * Hypertension * Acute hypoxemic respiratory failure-markedly improved -wean FiO2 as tolerated * PT/OT * Adequate nutrition * Insomnia Subjective: Sitting up in bed. Feels weak. Pain is reasonably well tolerated. Did not sleep well last night. Objective: Vital Signs Temp Pulse Resp BP Pulse Ox 36.5 C 88 8 L 125/48 H 97 09/20/18 08:00 09/20/18 09:00 09/20/18 09:00 09/20/18 09:00 09/20/18 09:00 Laboratory Results 09/20/18 04:35 09/20/18 04:35 09/19/18 09/20/18 09/21/18 05:59 05:59 05:59 Intake Total 2667 2042 Output Total 1415 515 Balance 1252 1527 PT 17.1 SEC (12.0-15.0) H 09/20/18 04:35 INR 1.46 (0.83-1.16) H 09/20/18 04:35 - Time Spent With Patient Time Spent With Patient: 35 min of time spent with patient, over 1/2 involved with coordination of care or counseling. Case discussed with Nursing and cardiothoracic surgery Physical Exam - Physical Exam General Appearance: alert, no apparent distress EENT: PERRL/EOMI Neck: non-tender, supple Respiratory: crackles (Few basilar), No respiratory distress, No wheezing Cardiac/Chest: normal peripheral pulses, regular rate, rhythm Peripheral Pulses: 2+: carotid (R), carotid (L), femoral (R), femoral (L), dorsalis-pedis (R), dorsalis-pedis (L) Abdomen: normal bowel sounds, non-tender, soft Male Genitalia: deferred Rectal: deferred Back: Normal inspection Skin: normal color, warm/dry Extremities: non-tender Neuro/Psych: alert, normal mood/affect ICD10 Worksheet Patient Problems: Problems Problem Status Onset Acute on chronic blood loss anemia Acute Aortic valve stenosis with insufficiency Acute ESRD (end stage renal disease) on dialysis Acute S/P CABG x 4 Acute S/P aortic valve replacement with bioprosthetic valve Acute Status post ligation of left atrial appendage Acute
[2018-09-20] MEDS: traMADol 50 MG TAB PO PRN ×2 (11:05→18:02)
[2018-09-20] MEDS ORDERED: WARFARIN SODIUM 1 MG TAB PO ONE (16:00)
--- NOTE | 2018-09-20 16:45 | SOAPPROG ---
SOAP Progress Note Assessment/Plan: Assessment/Plan: 83 yo M with PMH significant for ESRD on PD (followed by Dr. Richardson at [facility]), HTN, osteoarthritis admitted to ICU after 4 vessel CABG on 09/18. # ESRD- was on chronic PD, transitioning to HD until things heal up. Has AVF that has never been used --HD on 09/19 without any fluid removal *Tentatively plan for HD on 09/[address] Castillo agree with gentle fluid removal, otherwise will plan to wait until 09/22 as long as K ok --On Friday, will need to check with [facility] to see if referral has already been made for HD # Hyperkalemia-- improved after HD --low K diet # Hypotension- resolved. Off Dopamine and Levophed # Volume status- total body volume up, but likely third spacing after surgery, not bad --no fluid removal on 09/19 # Hyponatremia- Na downtrending slighlty --1.2L fluid restriction Discussed with Dr. Martinez and bedside nurse Subjective: Feeling ok today. Denies shortness of breath. Pain better controlled. Off Dopamine. Objective: Vital Signs Temp Pulse Resp BP Pulse Ox 36.6 C 81 16 109/64 97 09/20/18 16:00 09/20/18 16:00 09/20/18 16:00 09/20/18 16:00 09/20/18 16:00 Laboratory Results 09/20/18 04:35 09/20/18 14:25 09/19/18 09/20/18 09/21/18 05:59 05:59 05:59 Intake Total 2667 2042 284.1 Output Total 1415 515 93 Balance 1252 1527 191.1 PT 17.1 SEC (12.0-15.0) H 09/20/18 04:35 INR 1.46 (0.83-1.16) H 09/20/18 04:35 General- awake, alert, well-appearing, NAD Eyes- anicteric sclera, no conjunctival edema HEENT- MMM, no gross oral lesions CV- NRRR, no g/m/r, midline sternotomy c/d/i, drains in place Pulm- Anterior lung kay CTAB. + use of accessory muscles Extrem- 1+ LLE edema, 2+ RLE edema, LUE AVF with good bruit and thrill Psych- pleasant, answers questions appropriately Neuro- CN II-XII grossly intact, moves extremities ICD10 Worksheet Patient Problems: Problems Problem Status Onset Acute on chronic blood loss anemia Acute Aortic valve stenosis with insufficiency Acute ESRD (end stage renal disease) on dialysis Acute S/P CABG x 4 Acute S/P aortic valve replacement with bioprosthetic valve Acute Status post ligation of left atrial appendage Acute
[2018-09-20] MEDS: HYDROCODONE/APAP 5/325 TAB PO PRN (20:35)
[2018-09-20] MEDS: TERAZOSIN HCL 2 MG CAP PO SCH (20:35)
[2018-09-20] MEDS: IPRATROPIUM/ALBUTEROL 3 ML DEYVIAL IH PRN (22:34)
[2018-09-20] MEDS ORDERED: AMIODARONE 6HR INFSN (ORDER 2/3) PREMIX IV ONE (23:15)
[2018-09-20] MEDS ORDERED: AMIODARONE LOAD DOSE(ORDER 1/3) PREMIX IV ONE (23:15)
[2018-09-20] MEDS ORDERED: AMIODARONE HCL 150 MG/100 ML BAG (1.5 MG/ML) IV ONE (23:16)
[2018-09-21] MEDS: traMADol 50 MG TAB PO PRN (00:06)
[2018-09-21] MEDS: IPRATROPIUM/ALBUTEROL 3 ML DEYVIAL IH PRN ×3 (04:24→16:32)
[2018-09-21] MEDS ORDERED: AMIODARONE 18HR INFSN (ORDER 3/3) IV ONE (05:15)
[2018-09-21 05:33] LABS: INR 1.34 (0.83-1.16)
[2018-09-21 05:58] LABS: PLATELET COUNT 45 10^3/uL (150-400)
--- NOTE | 2018-09-21 06:52 | SOAPPROG ---
SOAP Progress Note Assessment/Plan: POD#3: AVR #25 Magna bioprosthesis, CABG x 4 (REYES-LAD, SV-OM1, SV-OM2, SV-RCA) , endoscopic eval of BLE vein - only rt leg harvested, prophylactic suture ligation NATO Sx severe CAD w preserved LV systolic fx - s/p CABGx4. Secondary prevention with ASA, BB and statin when appropriate. Severe /AI - s/p tissue AVR. Antithrombotic prophylaxis with Coumadin. Target INR 2-3, duration 8 wks. Acute expected blood loss anemia with thrombocytopenia and coagulopathy - Stable s/p 4u PRBC. Platelets lower today - precautionary HIT panel pending. Post-op paroxysmal atrial fibrillation - conversion to SR with amiodarone. CHADS2 3. Thromboprophylaxis as per AVR (8 weeks), loneger pending stability of rhythm. ESRD on PD - Nephrology following and directing dialysis. PD on hold x 4 weeks while sternotomy/CT sites heal. Plan to use LUE AVF for dialysis needs. Hx HTN - Preop control with combination therapy. Preferential use of BB when appropriate, with staggered reintro of remaining meds as tolerated. Subjective: Denies pain. Uncomfortable in bed. Objective: Vital Signs Temp Pulse Resp BP Pulse Ox 37.2 C 73 14 86/51 L 92 09/21/18 00:00 09/21/18 06:00 09/21/18 06:00 09/21/18 06:00 09/21/18 06:00 Laboratory Results 09/21/18 05:10 09/21/18 05:10 09/20/18 09/21/18 09/22/18 05:59 05:59 05:59 Intake Total 2042 1284.1 Output Total 515 363 Balance 1527 921.1 PT 16.0 SEC (12.0-15.0) H 09/21/18 05:10 INR 1.34 (0.83-1.16) H 09/21/18 05:10 Physical Exam - Physical Exam General Appearance: alert, mild distress EENT: No scleral icterus (R), No scleral icterus (L) Respiratory: chest non-tender, respiratory distress (mild) Cardiac/Chest: regular rate, rhythm Abdomen: non-tender, soft, No distended Skin: pallor Extremities: pedal edema Neuro/Psych: no motor/sensory deficits, oriented x 3 ICD10 Worksheet Patient Problems: Problems Problem Status Onset Acute on chronic blood loss anemia Acute Aortic valve stenosis with insufficiency Acute ESRD (end stage renal disease) on dialysis Acute S/P CABG x 4 Acute S/P aortic valve replacement with bioprosthetic valve Acute Status post ligation of left atrial appendage Acute
[2018-09-21] MEDS: PANTOPRAZOLE SODIUM 40 MG TAB PO SCH (09:49)
[2018-09-21] MEDS: SENNOSIDES/DOCUSATE SODIUM TAB PO SCH ×2 (09:55→21:46)
[2018-09-21] MEDS ORDERED: HYDROCODONE/APAP 5/325 TAB PO PRN (10:05)
--- NOTE | 2018-09-21 10:12 | PDINTPN ---
Wagon [facility]iller Progress Note Assessment/Plan: 83 yo M CAG s/p 4v CABG 09/18/18 and ESRD post op course complicated by post op respiratory failure and vasoplegia # CAD, severe. S/p 4v CAGB 09/18/18 and prophylactic NATO closure. # shock. vasoplegia from surgery. still requiring DA # post op resp failure. not expected. requiring supplemental oxygen and NT suction. poor cough # ESRD on PD as OP. using L AVF while hospitalized # encephalopathy surgery plus critical illness # afib. amio started 09/20/18 PLAN # iHD today # add flutter valve as part of CPT # NT suction # supplemental oxygen # nasal steroids via flonase for post nasal drip leading to worsening resp status # continue DA for ionotropic and BP support # cont amio # Feeding - NPO # Analgesia APAP, # Sedation none # Thromboprophylaxis - SQ hep transition to warfarin # Head of bed elevated # Ulcer prophylaxis - PPI # Glucose SSI # Skin no skin breakdown # Delirium - delirium precautions Patient is critical ill due to life threatening organ dysfunction and is at high risk for decompensation and . Total critical care time, excluding procedures: 67min IMAGING Subjective: afib overnight now on amio gtt, more edematous and somnolent today, still with difficulties with breathing. No new chest pain, fevers, chills Objective: Vital Signs Temp Pulse Resp BP Pulse Ox 36.4 C 78 20 118/70 93 09/21/18 08:00 09/21/18 08:00 09/21/18 08:00 09/21/18 08:00 09/21/18 08:00 Laboratory Results 09/21/18 05:10 09/21/18 05:10 09/20/18 09/21/18 09/22/18 05:59 05:59 05:59 Intake Total 2042 1284.1 Output Total 515 363 Balance 1527 921.1 PT 16.0 SEC (12.0-15.0) H 09/21/18 05:10 INR 1.34 (0.83-1.16) H 09/21/18 05:10 Physical Exam - Physical Exam General Appearance: other (Somnolent, minimally responsive.) EENT: other (Poor calf and gag. Anterior oropharynx clear) Neck: non-tender, full range of motion, other (Right IJ in place) Respiratory: other (Midline sternotomy clean dry and intact. Some tachypnea, course breath sounds bilateral bases, no wheezing) Cardiac/Chest: normal peripheral pulses, regular rate, rhythm, other (Midline sternotomy site clean dry and intact) Abdomen: normal bowel sounds, non-tender Extremities: normal range of motion, non-tender, pedal edema, other (Left AV fistula in place.), No calf tenderness Neuro/Psych: other (Somnolent, arousable, no focal deficits.) ICD10 Worksheet Patient Problems: Problems Problem Status Onset Acute on chronic blood loss anemia Acute Aortic valve stenosis with insufficiency Acute ESRD (end stage renal disease) on dialysis Acute S/P CABG x 4 Acute S/P aortic valve replacement with bioprosthetic valve Acute Status post ligation of left atrial appendage Acute
--- NOTE | 2018-09-21 10:20 | SOAPPROG ---
SOOLYA Progress Note Assessment/Plan: Assessment/Plan: ESRD: Pt has been on PD under Dr. Richardson at [facility], now transitioned to HD s/p 4v CABG and will need to continue for a few weeks, has a LUE AVF. - Will do HD today. - I spoke with [facility] today to discuss them setting him up for HD there. - Will assess for HD again tomorrow if needed for fluid removal. Hypervolemia: pt having increasing O2 requirements, will do HD with fluid removal today. Hyponatremia: will modulate with HD and fluid removal today. Hypotension: pt off pressors, will support BP as needed on HD with low temp dialysate and albumin. Subjective: No acute events overnight. Pt having increasing O2 requirements, now up to 5L via NC. He is a little drowsy. He denies any pain. Objective: Vital Signs Temp Pulse Resp BP Pulse Ox 36.4 C 78 20 118/70 93 09/21/18 08:00 09/21/18 08:00 09/21/18 08:00 09/21/18 08:00 09/21/18 08:00 Laboratory Results 09/21/18 05:10 09/21/18 05:10 09/20/18 09/21/18 09/22/18 05:59 05:59 05:59 Intake Total 2042 1284.1 Output Total 515 363 Balance 1527 921.1 PT 16.0 SEC (12.0-15.0) H 09/21/18 05:10 INR 1.34 (0.83-1.16) H 09/21/18 05:10 General: oriented, no acute distress Eyes: EOMI, PERRL OP: Clear CV: RRR Resp: nonlabored respirations on 5L NC, +crackles Abd: Soft, NT Ext: +1 edema all extremities Neuro: CN II-XII Grossly intact, no asterixis Psych: cooperative Access: LUE AVF with thrill and bruit appreciated ICD10 Worksheet Patient Problems: Problems Problem Status Onset Acute on chronic blood loss anemia Acute Aortic valve stenosis with insufficiency Acute ESRD (end stage renal disease) on dialysis Acute S/P CABG x 4 Acute S/P aortic valve replacement with bioprosthetic valve Acute Status post ligation of left atrial appendage Acute
[2018-09-21] MEDS: FLUTICASONE NASAL 120 SPRAYS/16 GM MDI EACHNARE SCH (10:27)
[2018-09-21] MEDS ORDERED: ALBUMIN 25% 50 ML SOLN IV ONE ×2 (11:53→11:58)
--- NOTE | 2018-09-21 13:32 | CPEKG ---
Test Reason : OPEN Blood Pressure : / mmHG Vent. Rate : 103 BPM Atrial Rate : 000 BPM P-R Int : 146 ms QRS Dur : 107 ms QT Int : 379 ms P-R-T Axes : 000 -15 114 degrees QTc Int : 496 ms Atrial fibrillation Abnormal R-wave progression, early transition Left ventricular hypertrophy Abnormal T, consider ischemia, lateral leads ST elevation, consider inferior injury Atrial fibrillation is new in comparison to prior Confirmed by Les Desai [id number] on 09/21/2018 1:31:48 PM Referred By: Des Castillo Confirmed By:Les Desai
[2018-09-21] MEDS ORDERED: WARFARIN SODIUM 2.5 MG TAB PO ONE (16:00)
[2018-09-21] MEDS ORDERED: ASPIRIN 81 MG CHEWABLE TAB PO SCH (21:00)
[2018-09-21] MEDS: AMIODARONE HCL 200 MG TAB PO SCH (21:46)
[2018-09-21] MEDS: TERAZOSIN HCL 2 MG CAP PO SCH (21:46)
[2018-09-22 04:26] LABS: PLATELET COUNT 48 10^3/uL (150-400)
[2018-09-22 04:33] LABS: INR 1.28 (0.83-1.16); PROTIME(PATIENT) 15.5 SEC (12.0-15.0)
--- NOTE | 2018-09-22 07:16 | SOAPPROG ---
SOAP Progress Note Assessment/Plan: POD#4: AVR #25 Magna bioprosthesis, CABG x 4 (REYES-LAD, SV-OM1, SV-OM2, SV-RCA) , endoscopic eval of BLE vein - only rt leg harvested, prophylactic suture ligation NATO Sx severe CAD w preserved LV systolic fx - s/p CABGx4. Secondary prevention with ASA, BB and statin when appropriate. Severe /AI - s/p tissue AVR. Antithrombotic prophylaxis with Coumadin. Target INR 2-3, duration 8 wks. Acute expected blood loss anemia with thrombocytopenia and coagulopathy - Stable s/p 5u PRBC. Platelets lower today - precautionary HIT panel pending. Post-op paroxysmal atrial fibrillation - conversion to SR with amiodarone. CHADS2 3. Thromboprophylaxis as per AVR (8 weeks), longer pending stability of rhythm. ESRD on PD - Nephrology following and directing dialysis. PD on hold x 4 weeks while sternotomy/CT sites heal. Plan to use LUE AVF for dialysis needs. Hx HTN - Preop control with combination therapy. Preferential use of BB when appropriate, with staggered reintro of remaining meds as tolerated. Dispo: Awaiting HIT panel Repeat CBC/BMP/INR/CXR tomorrow Plan to dc CT, cut wires NPO until VSS Subjective: No pain. Objective: Vital Signs Temp Pulse Resp BP Pulse Ox 37 C 91 19 104/72 92 09/22/18 00:00 09/22/18 06:00 09/22/18 06:00 09/22/18 06:00 09/22/18 06:00 Microbiology 09/21/18 11:45 - Final Sputum, Induced/Suctioned Laboratory Results 09/22/18 04:00 09/22/18 04:00 09/21/18 09/22/18 09/23/18 05:59 05:59 05:59 Intake Total 1284.1 328 Output Total 363 2680 Balance 921.1 -2352 PT 15.5 SEC (12.0-15.0) H 09/22/18 04:00 INR 1.28 (0.83-1.16) H 09/22/18 04:00 - Physical Exam General Appearance: alert, mild distress EENT: No scleral icterus (R), No scleral icterus (L) Respiratory: chest non-tender, respiratory distress (mild) Cardiac/Chest: regular rate, rhythm Abdomen: non-tender, soft, No distended Skin: pallor Extremities: pedal edema Neuro/Psych: no motor/sensory deficits, oriented x 3 ICD10 Worksheet Patient Problems: Problems Problem Status Onset Acute on chronic blood loss anemia Acute Aortic valve stenosis with insufficiency Acute ESRD (end stage renal disease) on dialysis Acute S/P CABG x 4 Acute S/P aortic valve replacement with bioprosthetic valve Acute Status post ligation of left atrial appendage Acute
--- NOTE | 2018-09-22 09:43 | SOAPPROG ---
WENDY Progress Note Assessment/Plan: Assessment/Plan: 83 y/o M with h/o ESRD on PD s/p CABG now on HD. ESRD: - Pt has been on PD under Dr. Richardson at [facility], now transitioned to HD with LUE AVF - Will do HD tomorrow - CM for outpatient dialysis for 6 weeks per cards HTN/vol: - may need to consider midodrine on HD for hypotension - will continue UF with HD Hyponatremia: Improving. Would fluid restrict to 1L daily. Anemia: Hb 9.7. EPO as outpatient. Will continue to follow, please contact if ?'s. #[phone]. 09/22/18 10:15 Subjective: Back on 2L NC today. Getting swallow study. Objective: Vital Signs Temp Pulse Resp BP Pulse Ox 37 C 85 20 128/70 H 92 09/22/18 00:00 09/22/18 08:00 09/22/18 08:00 09/22/18 08:00 09/22/18 08:00 Microbiology 09/21/18 11:45 - Final Sputum, Induced/Suctioned Laboratory Results 09/22/18 04:00 09/22/18 04:00 09/21/18 09/22/18 09/23/18 05:59 05:59 05:59 Intake Total 1284.1 328 Output Total 363 2680 Balance 921.1 -2352 PT 15.5 SEC (12.0-15.0) H 09/22/18 04:00 INR 1.28 (0.83-1.16) H 09/22/18 04:00 Physical Exam - Physical Exam General Appearance: WD/WN, alert, no apparent distress EENT: PERRL/EOMI Neck: non-tender, full range of motion Respiratory: decreased breath sounds, crackles Cardiac/Chest: regular rate, rhythm, edema Abdomen: normal bowel sounds, non-tender Skin: pallor Extremities: normal range of motion Neuro/Psych: normal mood/affect, oriented x 3 ICD10 Worksheet Patient Problems: Problems Problem Status Onset Acute on chronic blood loss anemia Acute Aortic valve stenosis with insufficiency Acute ESRD (end stage renal disease) on dialysis Acute S/P CABG x 4 Acute S/P aortic valve replacement with bioprosthetic valve Acute Status post ligation of left atrial appendage Acute
[2018-09-22] MEDS: AMIODARONE HCL 200 MG TAB PO SCH ×2 (10:00→20:04)
[2018-09-22] MEDS: PANTOPRAZOLE SODIUM 40 MG TAB PO SCH (10:00)
[2018-09-22] MEDS: SENNOSIDES/DOCUSATE SODIUM TAB PO SCH ×2 (10:00→20:04)
[2018-09-22] MEDS: FLUTICASONE NASAL 120 SPRAYS/16 GM MDI EACHNARE SCH (10:33)
[2018-09-22] MEDS: IPRATROPIUM/ALBUTEROL 3 ML DEYVIAL IH PRN (15:39)
[2018-09-22] MEDS ORDERED: WARFARIN SODIUM 2.5 MG TAB PO ONE (16:00)
[2018-09-22] MEDS: TERAZOSIN HCL 2 MG CAP PO SCH (20:05)
[2018-09-23 04:49] LABS: INR 1.53 (0.83-1.16); PROTIME(PATIENT) 17.7 SEC (12.0-15.0)
--- NOTE | 2018-09-23 06:50 | SOAPPROG ---
SOAP Progress Note Assessment/Plan: POD#5: AVR #25 Magna bioprosthesis, CABG x 4 (REYES-LAD, SV-OM1, SV-OM2, SV-RCA) , EVH R, prophylactic suture ligation NATO Sx severe CAD w preserved LV systolic fx - s/p CABGx4. Secondary prevention with ASA, BB and statin when appropriate. Severe /AI - s/p tissue AVR. Antithrombotic prophylaxis with Coumadin. Target INR 2-3, duration 8 wks. Acute expected blood loss anemia with thrombocytopenia and coagulopathy - Stable s/p PRBC transfusions. HIT negative. Platelets trending higher. Post-op paroxysmal atrial fibrillation - conversion to SR with amiodarone. CHADS2 3. Thromboprophylaxis as per AVR (8 weeks), longer pending stability of rhythm. ESRD on PD - Nephrology following and directing dialysis. PD on hold x 4 weeks while sternotomy/CT sites heal. LUE AVF for dialysis needs. Subjective: Feeling stronger. Denies pain/SOB. Objective: Vital Signs Temp Pulse Resp BP Pulse Ox 38.1 C 84 12 112/65 94 09/23/18 06:00 09/23/18 06:00 09/23/18 06:00 09/23/18 06:00 09/23/18 06:00 Microbiology 09/21/18 11:45 - Final Sputum, Induced/Suctioned Laboratory Results 09/23/18 04:30 09/23/18 04:30 09/22/18 09/23/18 09/24/18 05:59 05:59 05:59 Intake Total 328 1080 Output Total 2680 0 Balance -2352 1080 PT 17.7 SEC (12.0-15.0) H 09/23/18 04:30 INR 1.53 (0.83-1.16) H 09/23/18 04:30 Physical Exam - Physical Exam General Appearance: WD/WN, alert, no apparent distress EENT: No scleral icterus (R), No scleral icterus (L) Neck: normal inspection Respiratory: No respiratory distress Cardiac/Chest: regular rate, rhythm Abdomen: non-tender, soft, No distended Skin: normal color, warm/dry Extremities: pedal edema Neuro/Psych: no motor/sensory deficits, alert, normal mood/affect, oriented x 3 ICD10 Worksheet Patient Problems: Problems Problem Status Onset Acute on chronic blood loss anemia Acute Aortic valve stenosis with insufficiency Acute ESRD (end stage renal disease) on dialysis Acute S/P CABG x 4 Acute S/P aortic valve replacement with bioprosthetic valve Acute Status post ligation of left atrial appendage Acute
[2018-09-23] MEDS: PANTOPRAZOLE SODIUM 40 MG TAB PO SCH (09:31)
[2018-09-23] MEDS: SENNOSIDES/DOCUSATE SODIUM TAB PO SCH ×2 (09:32→21:01)
[2018-09-23] MEDS: AMIODARONE HCL 200 MG TAB PO SCH ×2 (09:32→21:01)
[2018-09-23] MEDS: FLUTICASONE NASAL 120 SPRAYS/16 GM MDI EACHNARE SCH (09:33)
[2018-09-23] MEDS ORDERED: LIDOCAINE 1% 300 MG/30 ML SDV ONE (10:09)
--- NOTE | 2018-09-23 13:07 | SOAPPROG ---
SOAP Progress Note Assessment/Plan: Assessment: 83 y/o M with h/o ESRD on PD s/p CABG now on HD. ESRD: - Pt has been on PD under Dr. Richardson at [facility], now transitioned to HD with LUE AVF -HD today and on MWF schedule - Please have Case Management send paperwork to outpt unit ([facility]) for confirmation of outpt chair- I spoke with nursing. Pt will need to be able to sit in chair for 4 hours in order to do this and encouraged him to work on this on non-HD days -railcar foreman to do PD catheter clean/dressing change today HTN/vol: - may need to consider midodrine on HD for hypotension - will continue UF with HD as tolerates - for thoracentesis Hyponatremia: continue fluid restrict to 1L daily. Na stable 133 S/p CABG x4 and AVF- per CT surgery. On coumadin Anemia: Hb drifting down to 9.3. 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 May need to restrict diet more but will continue regular for now to encourage po intake post op. Will continue to follow, please contact if ?'s. #[phone]. 09/23/18 14:35 09/23/18 14:35 Subjective: Seen on dialysis. Using AVF with 3k/2.5Ca bath, goal UF 1kg. Feels tired but denies any cp, sob. BP soft on HD. Nursing reports he was able to sit up in recliner chair for a long time earlier today. Objective: Vital Signs Temp Pulse Resp BP Pulse Ox 36.8 C 84 12 121/67 H 96 09/23/18 10:22 09/23/18 12:00 09/23/18 12:00 09/23/18 12:00 09/23/18 12:00 Microbiology 09/21/18 11:45 - Final Sputum, Induced/Suctioned Laboratory Results 09/23/18 04:30 09/23/18 04:30 09/22/18 09/23/18 09/24/18 05:59 05:59 05:59 Intake Total 328 1080 Output Total 2680 0 575 Balance -2352 1080 -575 PT 17.7 SEC (12.0-15.0) H 09/23/18 04:30 INR 1.53 (0.83-1.16) H 09/23/18 04:30 Physical Exam - Physical Exam General Appearance: alert, no apparent distress EENT: other (mmm) Neck: supple, other Respiratory: lungs clear (ant bilat) Cardiac/Chest: regular rate, rhythm, other (sternal incision ok) Abdomen: non-tender, soft, other (PD cath) Extremities: other (trace LE edema bilat) Neuro/Psych: alert, oriented x 3 ICD10 Worksheet Patient Problems: Problems Problem Status Onset Acute on chronic blood loss anemia Acute Aortic valve stenosis with insufficiency Acute ESRD (end stage renal disease) on dialysis Acute S/P CABG x 4 Acute S/P aortic valve replacement with bioprosthetic valve Acute Status post ligation of left atrial appendage Acute
[2018-09-23] MEDS: GENTAMICIN 0.1% 15 GM OINT TP PRN (15:46)
[2018-09-23] MEDS ORDERED: WARFARIN SODIUM 2.5 MG TAB PO ONE (16:00)
--- NOTE | 2018-09-23 16:03 | ASMTCMCOM ---
CM Note CM Note Notes: Pt care discussed in rounds, CM spoke with pt's daughter about discharge planning and she reports she has concerns about him going home and that his needs exceed what they can handle. PT/OT rec SNF. CM provided education about SNF and she would appreciate linkage at discharge. CM provided education on facilities in area and informed her that we would need to initiate referrals TONI. Pt's son Oni was in the room and she said to initiate referral for [facility] and [facility] in [place] and Renetta would let us know which one she prefers. CM to follow. Plan: [facility] or [facility] Date Signed: 09/23/2018 03:56 PM Electronically Signed By:JUVENCIO Zhang
[2018-09-23] MEDS: CALCIUM ACETATE 667 MG CAP PO SCH (17:27)
[2018-09-23] MEDS: ACETAMINOPHEN 325 MG TAB PO PRN (21:02)
[2018-09-23] MEDS: TERAZOSIN HCL 2 MG CAP PO SCH (21:02)
[2018-09-24 05:58] LABS: PROTIME(PATIENT) 21.7 SEC (12.0-15.0)
--- NOTE | 2018-09-24 06:44 | SOAPPROG ---
SOAP Progress Note Assessment/Plan: POD #6: AVR #25 Magna bioprosthesis, CABG x 4 (REYES-LAD, SV-OM1, SV-OM2, SV-RCA) , EVH R, prophylactic suture ligation NATO Sx severe CAD w preserved LV systolic fx - s/p CABGx4. Secondary prevention with ASA, BB and statin when appropriate. Severe /AI - s/p tissue AVR. Antithrombotic prophylaxis with Coumadin. Target INR 2-3, duration 8 wks. Post-op ECHO 09/24. Acute expected blood loss anemia with thrombocytopenia and coagulopathy - Stable s/p 5 PRBC transfusions. HIT negative. Platelets trending higher. Post-op paroxysmal atrial fibrillation - conversion to SR with amiodarone. CHADS2 3. Thromboprophylaxis as per AVR (8 weeks), longer pending stability of rhythm. ESRD on PD - Nephrology following and directing dialysis. PD on hold x 4 weeks while sternotomy/CT sites heal. LUE AVF for dialysis needs. DVT prophylaxis - SCDs/Coumadin. Disposition - SDU status with possible transfer to PCU today. Subjective: Feeling much better. Breathing feels easier. Walking without complaints. Denies pain. Objective: Vital Signs Temp Pulse Resp BP Pulse Ox 37.3 C 88 15 100/54 L 90 L 09/23/18 20:00 09/24/18 04:00 09/24/18 04:00 09/24/18 04:00 09/24/18 04:00 Microbiology 09/21/18 11:45 - Final Sputum, Induced/Suctioned Laboratory Results 09/24/18 05:20 09/24/18 05:20 09/23/18 09/24/18 09/25/18 05:59 05:59 05:59 Intake Total 1080 800 Output Total 0 1475 Balance 1080 -675 PT 21.7 SEC (12.0-15.0) H 09/24/18 05:20 INR 2.00 (0.83-1.16) H 09/24/18 05:20 Physical Exam - Physical Exam General Appearance: WD/WN, alert, no apparent distress EENT: No scleral icterus (R), No scleral icterus (L) Neck: normal inspection Respiratory: No respiratory distress Cardiac/Chest: regular rate, rhythm Abdomen: non-tender, soft, No distended Skin: normal color, warm/dry Extremities: pedal edema Neuro/Psych: no motor/sensory deficits, alert, normal mood/affect, oriented x 3 ICD10 Worksheet Patient Problems: Problems Problem Status Onset Acute on chronic blood loss anemia Acute Aortic valve stenosis with insufficiency Acute ESRD (end stage renal disease) on dialysis Acute S/P CABG x 4 Acute S/P aortic valve replacement with bioprosthetic valve Acute Status post ligation of left atrial appendage Acute
[2018-09-24] MEDS ORDERED: BISACODYL 10 MG SUPP PR PRN (08:50)
[2018-09-24] MEDS ORDERED: LACTULOSE 20 GM/30 ML UDCUP PO PRN (08:50)
[2018-09-24] MEDS ORDERED: EPOETIN ALFA 10,000 UNIT/ML VIAL SC SCH (09:00)
[2018-09-24] MEDS: AMIODARONE HCL 200 MG TAB PO SCH ×2 (09:20→21:10)
[2018-09-24] MEDS: CALCIUM ACETATE 667 MG CAP PO SCH ×3 (09:21→17:22)
[2018-09-24] MEDS: AZITHROMYCIN 250 MG TAB PO SCH (09:21)
[2018-09-24] MEDS: PANTOPRAZOLE SODIUM 40 MG TAB PO SCH (09:22)
--- NOTE | 2018-09-24 09:28 | SOAPPROG ---
WENDY Progress Note Assessment/Plan: Assessment/Plan: 83 y/o M with h/o ESRD on PD s/p CABG now on HD. ESRD: - Pt has been on PD under Dr. Richardson at [facility], now transitioned to HD with LUE AVF - s/p HD yesterday, will plan for MWF schedule while admitted - for outpatient dialysis for 6 weeks per cards HTN/vol: - will add midodrine if ok with CTS, would avoid more fluids - s/p thoracentesis yesterday - will continue UF with HD Hyponatremia: Improving. Would fluid restrict to 1L daily. Anemia: Hb 9.7. EPO as outpatient. Will continue to follow, please contact if ?'s. #[phone]. 09/24/18 10:15 Subjective: 200cc fluid off lungs yesterday. Patient feels that breathing is the same. Up to chair and ready for floor transfer. Objective: Vital Signs Temp Pulse Resp BP Pulse Ox 36.8 C 99 20 105/59 L 91 L 09/24/18 08:50 09/24/18 08:50 09/24/18 08:50 09/24/18 08:50 09/24/18 08:50 Microbiology 09/21/18 11:45 - Final Sputum, Induced/Suctioned Laboratory Results 09/24/18 05:20 09/24/18 05:20 09/23/18 09/24/18 09/25/18 05:59 05:59 05:59 Intake Total 1080 800 Output Total 0 1475 Balance 1080 -675 PT 21.7 SEC (12.0-15.0) H 09/24/18 05:20 INR 2.00 (0.83-1.16) H 09/24/18 05:20 Physical Exam - Physical Exam General Appearance: WD/WN, alert, no apparent distress EENT: PERRL/EOMI Neck: non-tender, full range of motion, supple Respiratory: decreased breath sounds, crackles Cardiac/Chest: normal peripheral pulses, regular rate, rhythm, other (central scar healing) Abdomen: normal bowel sounds, non-tender, soft Skin: normal color, warm/dry Extremities: normal range of motion, non-tender, other (L AVF good thrill) Neuro/Psych: no motor/sensory deficits, alert, normal mood/affect ICD10 Worksheet Patient Problems: Problems Problem Status Onset Acute on chronic blood loss anemia Acute Aortic valve stenosis with insufficiency Acute ESRD (end stage renal disease) on dialysis Acute S/P CABG x 4 Acute S/P aortic valve replacement with bioprosthetic valve Acute Status post ligation of left atrial appendage Acute
[2018-09-24] MEDS: SENNOSIDES/DOCUSATE SODIUM TAB PO SCH ×2 (11:06→21:10)
[2018-09-24] MEDS: FLUTICASONE NASAL 120 SPRAYS/16 GM MDI EACHNARE SCH (11:07)
--- NOTE | 2018-09-24 12:45 | ECHO ---
[email or web address] [address] [address] Main: [phone] Echocardiography Examination Transthoracic Name: JUNITO KUMARI MR#: Study Date: 09/24/2018 Study Time: 11:01 AM Date of : 1935 Age: 83 year(s) Height: 177.8 cm (70 in.) Weight: 83.01 kg (183 lb.) BSA: 2.01 m2 Gender: Male Examination: Echo Contrast: Image Quality: Adequate Rhythm: Heart Rate: 88 bpm BP: 105 mmHg/ Indication: Post AVR Procedure Staff Referring Physician: Computational Physicist: Reading Physician: Oni Sarabia MD Requesting Provider: Ordering Physician: Miguel A Warren Indication: Post AVR Measurements Chambers AV/MV Label Value Normal Value Label Value Normal Value IVSd, 2D 1.2 cm (0.6cm - 1.1cm) AV PGmax 31 mmHg IVSd, MM 1.6 cm (0.6cm - 0.9cm) AV PGmean 20 mmHg LVDd, 2D 5.6 cm (4.2cm - 5.9cm) AV Vmax 2.77 m/s LVDd, MM 6 cm (4.2cm - 5.9cm) RISHI (continuity eq. 1.5 cm2 LVDs, 2D 4.3 cm (2.1cm - 4cm) Vmax) LVDs, MM 4.7 cm (2cm - 3.8cm) RISHI D (continuity eq. 1.6 cm2 LVEF, 2D 45 % (54% - 74%) VTI) LVEF, BP 45 % (55% - 70%) MV A Vmax 0.88 m/s LVOT PGmax 3 mmHg MV E' lateral 0.08 m/s LVOT PGmean 2 mmHg MV E' mean 0.06 m/s LVOT Vmax 0.86 m/s (0.7m/s - 1.1m/s) MV E' septal 0.04 m/s LVOT Vmean 0.56 m/s MV E Vmax 0.82 m/s LVOTd 2.5 cm (1.9cm - 2.1cm) MV E/A 0.93 LVPWd, 2D 1 cm (0.6cm - 1cm) MV E/E' lateral 10.3 LVPWd, MM 1.4 cm (0.6cm - 1cm) MV E/E' mean 13.67 RVDd, 2D 2.4 cm (1.9cm - 3.8cm) MV E/E' septal 20.6 (0.45 - 1.25) LA Volume, BP 88 ml (18ml - 58ml) TV/PV LADs, 2D 4 cm (3cm - 4cm) Label Value Normal Value LAESV index, BP 43.8 ml/m2 RA Pressure 5 mmHg Patient: JUNITO KUMARI MRN: Study Date: 09/24/2018 Page 1 of 3 11:01 AM RA Area 20.9 cm2 TR Vmax 1.7 m/s Additional Vessels PV PGmax 4 mmHg Label Value Normal Value PV Vmax, Caliper 1.03 m/s (0.6m/s - 0.9m/s) AoRoot, MM 4.1 cm (2.2cm - 3.7cm) Conclusions Left Ventricle: CONCLUSIONS:1)Mildly reduced LV systolic function with a LVEF of 45%.2)Mild LV enlargement noted.3)Mild bi-atrial enlargement noted.4)Bioprosthetic AVR with peak and mean gradient of 31 and 17 mmHg respectively and no AI. 5)Trivial to mild TR noted. Unable to assess accurate PA pressures.6)Maybe trivial at most pericardial effusion with no tamponade signs. Findings Left Ventricle: There is anteroseptal and anterior hypokinesis.. Left ventricle is mildly dilated. Mildly reduced systolic left ventricular function. CONCLUSIONS: 1)Mildly reduced LV systolic function with a LVEF of 45%. 2)Mild LV enlargement noted. 3)Mild bi-atrial enlargement noted. 4)Bioprosthetic AVR with peak and mean gradient of 31 and 17 mmHg respectively and no AI. 5)Trivial to mild TR noted. Unable to assess accurate PA pressures. 6)Maybe trivial at most pericardial effusion with no tamponade signs.Left ventricle wall thickness is normal. Grade I Diastolic Dysfunction. Right Ventricle: Normal size right ventricle. The RV function appears grossly normal. Left Atrium: The left atrium is mildly dilated. Right Atrium: The right atrium is mildly dilated. Right Atrium Measurements RA Area is 20.9 cm2. Mitral Valve: No significant mitral regurgitation. There is mild mitral thickening. Aortic Valve: The AVv max is 2.8 m/s and the Mean/Max PG is 20-32 mmHg.. The aortic valve is a bioprosthesis measuring 25 mm. Tricuspid Valve: Tricuspid valve leaflets are structurally normal. Trivial tricuspid regurgitation. Pulmonic Valve: Pulmonic leaflets are normal in appearance and function. Aorta: The aorta is normal. The aortic root size in M-mode measures 4.1 cm. Aorta Measurements AoRoot, MM is 4.1 cm. Exam Details Procedure Ordered: Echo Procedure Status: Routine study Image Quality: Adequate Patient: JUNITO KUMARI MRN: Study Date: 09/24/2018 Page 2 of 3 11:01 AM Facility Location: Cardiac Echo 1 (No Signature Object) Patient: JUNITO KUMARI MRN: Study Date: 09/24/2018 Page 3 of 3 11:01 AM [id number]
--- NOTE | 2018-09-24 15:18 | ASMTCMCOM ---
CM Note CM Note Notes: Per nephrology, patient will need 6 weeks of HD while sternotomy heals before resuming PD. I spoke with patient and his son and daughter about d/c plan. [facility] can accept patient with HD ([facility] cannot). They will transport him to whichever dialysis facility he prefers; although he was getting PD at [facility], he is amenable to switching to [facility] in [place] since it's closer to [facility]. I called [facility] to inquire about available chairs but have not received a call back. Case Management will follow. Current CM Discharge plan: [facility] with HD Date Signed: 09/24/2018 03:17 PM Electronically Signed By:Lawanda Hammer RN
[2018-09-24] MEDS ORDERED: WARFARIN SODIUM 1 MG TAB PO ONE (16:00)
[2018-09-24] MEDS: traMADol 50 MG TAB PO PRN (21:09)
[2018-09-24] MEDS: TERAZOSIN HCL 2 MG CAP PO SCH (21:10)
[2018-09-25 03:53] LABS: INR 2.28 (0.83-1.16)
--- NOTE | 2018-09-25 08:29 | SOAPPROG ---
SOAP Progress Note Assessment/Plan: Assessment: POD#7 AVR#25 Magna bioprosthesis, CABG x 4 (REYES-LAD, SV-OM1, SV-OM2 , SV-RCA), endoscopic eval of BLE vein - only rt leg harvested, prophylactic suture ligation NATO PPD#1 Left thoracentesis for 200 ml D#2 Zithromax for sinusitis Sx severe CAD w preserved LV systolic fx - Fully revascularized with CABG. No prolonged pressor support. No delay to extubation. CTs and TCPWs out. Moderate volume overload removed w UF. Secondary prevention with ASA, BB and statin when appropriate. Severe /AI - s/p tissue AVR. Antithrombotic prophylaxis with Coumadin. Target INR 2-3, duration 8 wks pending stability of rhythm. Acute expected blood loss anemia with thrombocytopenia and coagulopathy - Stable s/p 5u PRBC. Precautionary HIT neg. Plt count appears to be rebounding. VTE prophylaxis with SCDs/coumadin. INR therapeutic on very low dose Coumadin. Postop PAF - Conversion to SR with amiodarone. Recurrent AF w CVR this am. Adjunctive BB as allowed by BP. [id number] 4. Thromboprophylaxis as per AVR ( 8 weeks), pending stability of rhythm. Postop sinusitis - Congestion and nasal drip similar to past episodes. Started on Abx. Duration TBD pending efficacy. Care with anticoagulation. ESRD on PD - PD on hold x 4 weeks while sternotomy/CT sites heal. Use of mature LUE AVF/fluid management per nephrology. Skilled for SNF by PT. Hx HTN - Preop control with combination therapy. Preferential use of BB when appropriate, with staggered reintro of remaining meds as tolerated. Plan: Continue amiodarone 200 mg BID. [place] IV amio 150 mg for RVR. No coumadin today. Start Lipitor tonEssential Viewing. Cont inc activity as tolerated. Dispo - [facility] (w HD in [place]) on 09/28. 09/25/18 08:24 Subjective: Doing ok. Improving strength and mobility. Feels like his sinuses "have dried up ". Objective: Vital Signs Temp Pulse Resp BP Pulse Ox 36.6 C 93 19 116/69 94 09/25/18 08:02 09/25/18 08:02 09/25/18 08:02 09/25/18 08:02 09/25/18 08:02 Microbiology 09/21/18 11:45 - Final Sputum, Induced/Suctioned Sputum Culture - Final Laboratory Results 09/25/18 03:35 09/25/18 03:35 09/24/18 09/25/18 09/26/18 05:59 05:59 05:59 Intake Total 800 1080 Output Total 1475 1125 Balance -675 -45 PT 24.0 SEC (12.0-15.0) H 09/25/18 03:35 INR 2.28 (0.83-1.16) H 09/25/18 03:35 Physical Exam - Physical Exam General Appearance: alert, no apparent distress Respiratory: lungs clear (grossly), other (CT dressing CDI) Cardiac/Chest: regular rate, rhythm (w occ premature beat) Abdomen: non-tender, soft Skin: warm/dry Extremities: swelling (1+ gen), other (bilat venotomies CDI) ICD10 Worksheet Patient Problems: Problems Problem Status Onset Acute on chronic blood loss anemia Acute Aortic valve stenosis with insufficiency Acute ESRD (end stage renal disease) on dialysis Acute S/P CABG x 4 Acute S/P aortic valve replacement with bioprosthetic valve Acute Status post ligation of left atrial appendage Acute
[2018-09-25] MEDS: AZITHROMYCIN 250 MG TAB PO SCH (08:31)
[2018-09-25] MEDS: AMIODARONE HCL 200 MG TAB PO SCH ×2 (08:33→21:46)
[2018-09-25] MEDS: CALCIUM ACETATE 667 MG CAP PO SCH ×3 (08:33→18:23)
[2018-09-25] MEDS: PANTOPRAZOLE SODIUM 40 MG TAB PO SCH (08:33)
--- NOTE | 2018-09-25 09:34 | SOAPPROG ---
WENDY Progress Note Assessment/Plan: Assessment/Plan: 83 y/o M with h/o ESRD on PD s/p CABG now on HD. ESRD: - Pt has been on PD under Dr. Richardson at [facility], now transitioned to HD with LUE AVF - will plan for HD today, if issues with access will need fistulagram with IR - CM for outpatient dialysis for 6 weeks per cards HTN/vol: - will add midodrine if ok with CTS, would avoid more fluids and use IV albumin prn - s/p thoracentesis s/p CABG - will continue UF with HD Hyponatremia: Improving. Would fluid restrict to 1L daily. Anemia: Hb 9.2. EPO as outpatient. Will continue to follow, please contact if ?'s. #[phone]. 09/25/18 10:12 Subjective: Patient having some arm swelling on AVF yesterday. US showed no clot. Denies pain or numbness and feels that it is improving today. Objective: Vital Signs Temp Pulse Resp BP Pulse Ox 36.6 C 93 19 116/69 94 09/25/18 08:02 09/25/18 08:02 09/25/18 08:02 09/25/18 08:02 09/25/18 08:02 Microbiology 09/21/18 11:45 - Final Sputum, Induced/Suctioned Sputum Culture - Final Laboratory Results 09/25/18 03:35 09/25/18 03:35 09/24/18 09/25/18 09/26/18 05:59 05:59 05:59 Intake Total 800 1080 Output Total 1475 1125 Balance -675 -45 PT 24.0 SEC (12.0-15.0) H 09/25/18 03:35 INR 2.28 (0.83-1.16) H 09/25/18 03:35 Physical Exam - Physical Exam General Appearance: WD/WN, alert, no apparent distress EENT: PERRL/EOMI Neck: non-tender, supple Respiratory: decreased breath sounds, crackles Cardiac/Chest: regular rate, rhythm, other (midline scar) Abdomen: normal bowel sounds, non-tender, soft Skin: pallor Extremities: normal range of motion, other (LAVF swelling with good thrill) Neuro/Psych: no motor/sensory deficits, alert, oriented x 3 ICD10 Worksheet Patient Problems: Problems Problem Status Onset Acute on chronic blood loss anemia Acute Aortic valve stenosis with insufficiency Acute ESRD (end stage renal disease) on dialysis Acute S/P CABG x 4 Acute S/P aortic valve replacement with bioprosthetic valve Acute Status post ligation of left atrial appendage Acute
[2018-09-25] MEDS: SENNOSIDES/DOCUSATE SODIUM TAB PO SCH (10:06)
[2018-09-25] MEDS: FLUTICASONE NASAL 120 SPRAYS/16 GM MDI EACHNARE SCH (10:28)
[2018-09-25] MEDS: ALBUMIN 25% 50 ML IV PRN (12:26)
--- NOTE | 2018-09-25 12:39 | ASMTCMCOM ---
CM Note CM Note Notes: Patient will stay with [facility] (his PD facility) for HD after d/c. The current d/c plan (barring any changes in patient's condition) is to [facility] on Thursday 09/28 after HD in hospital. He will then have his first outpt HD session at [facility] 09/30 @ 10AM. I have communicated this to Latonia at [facility] and also discussed w patient's daughter Renetta. Case Management will continue to follow. Current CM Discharge plan: [facility] + [facility] Date Signed: 09/25/2018 12:38 PM Electronically Signed By:Lawanda Hammer RN
[2018-09-25 13:38] LABS: HEPATITIS B SURFACE ANTIGEN NEGATIVE (NEGATIVE)
[2018-09-25] MEDS: GENTAMICIN 0.1% 15 GM OINT TP PRN (15:53)
[2018-09-25] MEDS ORDERED: SENNOSIDES/DOCUSATE SODIUM TAB PO PRN (21:00)
[2018-09-25] MEDS: ATORVASTATIN CALCIUM 10 MG TAB PO SCH (21:46)
[2018-09-25] MEDS: TERAZOSIN HCL 2 MG CAP PO SCH (21:46)
[2018-09-26 04:46] LABS: INR 2.12 (0.83-1.16); PROTIME(PATIENT) 22.7 SEC (12.0-15.0)
--- NOTE | 2018-09-26 07:17 | SOAPPROG ---
SOAP Progress Note Assessment/Plan: Assessment: POD#8 AVR#25 Magna bioprosthesis, CABG x 4 (REYES-LAD, SV-OM1, SV-OM2 , SV-RCA), endoscopic eval of BLE vein - only rt leg harvested, prophylactic suture ligation NATO PPD#2 Left thoracentesis for 200 ml D#3 Zithromax for sinusitis Sx severe CAD w preserved LV systolic fx - Fully revascularized with CABG. No prolonged pressor support. No delay to extubation. CTs and TCPWs out. Moderate volume overload removed w UF. Secondary prevention with ASA, BB, and statin when appropriate. BB unable to start given labile BP. Severe /AI - s/p tissue AVR. Antithrombotic prophylaxis with Coumadin. Target INR 2-3, duration 8 wks pending stability of rhythm. Acute expected blood loss anemia with thrombocytopenia and coagulopathy - Stable s/p 5u PRBC. HIT neg. Plt count appears to be rebounding. VTE prophylaxis with SCDs/coumadin. INR therapeutic on very low dose Coumadin. Postop PAF - Conversion to SR with amiodarone. Recurrent AF w CVR this am. Adjunctive BB as allowed by BP. [id number] 4. Thromboprophylaxis as per AVR ( 8 weeks), pending stability of rhythm. Postop sinusitis - Congestion and nasal drip similar to past episodes. Started on Abx. Care with anticoagulation. Scheduled to end tomorrow. ESRD on PD - PD on hold x 4 weeks while sternotomy/CT sites heal. Use of mature LUE AVF/fluid management per nephrology. Hx HTN - Preop control with combination therapy. Preferential use of BB when appropriate, with staggered reintro of remaining meds as tolerated. Plan: Low dose coumadin tonight - monitor INR w azithromycin & amiodarone CBC/BMP/INR tomorrow Will d/w Dr. Jacob restarting low-dose, pre-op ASA Dispo - [facility] (w [facility] in [place]) on 09/28 Subjective: Concerned about planned Friday discharge with HD. Objective: Vital Signs Temp Pulse Resp BP Pulse Ox 36.8 C 91 22 H 101/65 97 09/25/18 20:00 09/26/18 04:00 09/26/18 04:00 09/26/18 04:00 09/26/18 04:00 Laboratory Results 09/26/18 04:15 09/26/18 04:15 09/25/18 09/26/18 09/27/18 05:59 05:59 05:59 Intake Total 1080 700 Output Total 1125 2900 Balance -45 -2200 PT 22.7 SEC (12.0-15.0) H 09/26/18 04:15 INR 2.12 (0.83-1.16) H 09/26/18 04:15 - Physical Exam General Appearance: alert, no apparent distress Respiratory: lungs clear (grossly), other (CT dressing CDI) Cardiac/Chest: regular rate, rhythm (w occ premature beat) Abdomen: non-tender, soft Skin: warm/dry Extremities: swelling (1+ gen), other (bilat venotomies CDI), fistula cdi ICD10 Worksheet Patient Problems: Problems Problem Status Onset Acute on chronic blood loss anemia Acute Aortic valve stenosis with insufficiency Acute ESRD (end stage renal disease) on dialysis Acute S/P CABG x 4 Acute S/P aortic valve replacement with bioprosthetic valve Acute Status post ligation of left atrial appendage Acute
[2018-09-26] MEDS: FLUTICASONE NASAL 120 SPRAYS/16 GM MDI EACHNARE SCH (09:11)
[2018-09-26] MEDS: AMIODARONE HCL 200 MG TAB PO SCH ×2 (09:11→20:23)
[2018-09-26] MEDS: CALCIUM ACETATE 667 MG CAP PO SCH ×3 (09:11→20:23)
[2018-09-26] MEDS: AZITHROMYCIN 250 MG TAB PO SCH (09:11)
[2018-09-26] MEDS: PANTOPRAZOLE SODIUM 40 MG TAB PO SCH (09:11)
[2018-09-26] MEDS ORDERED: WARFARIN SODIUM 1 MG TAB PO ONE (16:00)
[2018-09-26] MEDS: traMADol 50 MG TAB PO PRN (20:23)
[2018-09-26] MEDS: TERAZOSIN HCL 2 MG CAP PO SCH (20:23)
[2018-09-26] MEDS: ATORVASTATIN CALCIUM 10 MG TAB PO SCH (20:23)
[2018-09-27 07:01] LABS: PROTIME(PATIENT) 21.7 SEC (12.0-15.0)
--- NOTE | 2018-09-27 07:30 | SOAPPROG ---
SOAP Progress Note Assessment/Plan: Assessment: POD#9 AVR#25 Magna bioprosthesis, CABG x 4 (REYES-LAD, SV-OM1, SV-OM2 , SV-RCA), endoscopic eval of BLE vein - only rt leg harvested, prophylactic suture ligation NATO PPD#3 Left thoracentesis for 200 ml D#4 Zithromax for sinusitis Sx severe CAD w preserved LV systolic fx - Fully revascularized with CABG. No prolonged pressor support. No delay to extubation. CTs and TCPWs out. Moderate volume overload removed w UF. Secondary prevention with ASA, statin. BB previously unable to be started given labile BP & vasoplegia. BP improved and low-dose BB started today which was poorly tolerated after 1 dose (BP dropped 40 mmHg, NSR->afib). Severe /AI - s/p tissue AVR. Antithrombotic prophylaxis with Coumadin. Target INR 2-3, duration 8 wks pending stability of rhythm. Acute expected blood loss anemia with thrombocytopenia and coagulopathy - Stable s/p 5u PRBC. HIT neg. VTE prophylaxis with SCDs/coumadin. Postop PAF - Afib this morning after BB administered (hypotension). Previous PAF this hospitalization with conversion to SR w amiodarone. [id number] 4. Thromboprophylaxis as per AVR (8 weeks), pending stability of rhythm. Postop sinusitis - Congestion and nasal drip similar to past episodes. Course completed. ESRD on PD - PD on hold x 4 weeks while sternotomy/CT sites heal. Use of mature LUE AVF/fluid management per nephrology. Hx HTN - Preop control with combination therapy w ARB/CCB. BB poorly tolerated. Plan: Cont low dose coumadin @ 2 mg PO tonight Amio 150 mg IV bolus for afib, cont PO dose Dispo - [facility] (w [facility] in [place]) on 09/28 Subjective: Afib this AM with hypotension. Objective: Vital Signs Temp Pulse Resp BP Pulse Ox 36.8 C 90 16 118/68 95 09/27/18 04:00 09/27/18 04:00 09/27/18 04:00 09/27/18 04:00 09/27/18 04:00 Laboratory Results 09/27/18 06:30 09/27/18 06:30 09/26/18 09/27/18 09/28/18 05:59 05:59 05:59 Intake Total 700 850 Output Total 2900 400 Balance -2200 450 PT 21.7 SEC (12.0-15.0) H 09/27/18 06:30 INR 2.00 (0.83-1.16) H 09/27/18 06:30 - Physical Exam General Appearance: alert, no apparent distress Respiratory: lungs clear (grossly), other (CT dressing CDI) Cardiac/Chest: afib, sternum cdi Abdomen: non-tender, soft Skin: warm/dry Extremities: swelling (1+ gen), other (bilat venotomies CDI), fistula cdi ICD10 Worksheet Patient Problems: Problems Problem Status Onset Acute on chronic blood loss anemia Acute Aortic valve stenosis with insufficiency Acute ESRD (end stage renal disease) on dialysis Acute S/P CABG x 4 Acute S/P aortic valve replacement with bioprosthetic valve Acute Status post ligation of left atrial appendage Acute
[2018-09-27] MEDS: AMIODARONE HCL 200 MG TAB PO SCH ×2 (08:31→20:04)
[2018-09-27] MEDS: PANTOPRAZOLE SODIUM 40 MG TAB PO SCH (08:31)
[2018-09-27] MEDS: CALCIUM ACETATE 667 MG CAP PO SCH ×3 (08:31→19:22)
[2018-09-27] MEDS: ASPIRIN 81 MG CHEWABLE TAB PO SCH (08:31)
[2018-09-27] MEDS: FLUTICASONE NASAL 120 SPRAYS/16 GM MDI EACHNARE SCH (08:32)
[2018-09-27] MEDS ORDERED: METOPROLOL TARTRATE 25 MG TAB PO SCH (09:00)
[2018-09-27] MEDS ORDERED: AMIODARONE HCL 100 ML IV ONE (10:00)
[2018-09-27] MEDS ORDERED: ALBUMIN 5% 250 ML IV ONE (11:00)
[2018-09-27] MEDS ORDERED: ALBUMIN 5% 250 ML IV PRN (11:44)
--- NOTE | 2018-09-27 12:26 | SOAPPROG ---
WENDY Progress Note Assessment/Plan: Assessment/Plan: 83 y/o M with h/o ESRD on PD s/p CABG now on HD. ESRD: - Pt has been on PD under Dr. Richardson at [facility], now transitioned to HD with LUE AVF - plan for HD tomorrow prior to d/c if chair at [facility] ready for Friday - has had some dependent edema on LAVF, no clot per US - CM for outpatient dialysis for 6 weeks per cards HTN/vol: - soft BPs, may use midodrine on HD - amio per carbs - s/p thoracentesis with CABG - attempt to UF with HD Anemia: Hb 9.2. EPO as outpatient. Will continue to follow, please contact if ?'s. #[phone]. 09/27/18 12:24 Subjective: BP's low this am. Swelling in arm improved. Objective: Vital Signs Temp Pulse Resp BP Pulse Ox 36.7 C 74 16 90/51 L 96 09/27/18 08:00 09/27/18 11:30 09/27/18 11:30 09/27/18 11:30 09/27/18 11:30 Laboratory Results 09/27/18 06:30 09/27/18 06:30 09/26/18 09/27/18 09/28/18 05:59 05:59 05:59 Intake Total 700 850 Output Total 2900 400 Balance -2200 450 PT 21.7 SEC (12.0-15.0) H 09/27/18 06:30 INR 2.00 (0.83-1.16) H 09/27/18 06:30 Physical Exam - Physical Exam General Appearance: WD/WN, alert EENT: PERRL/EOMI Neck: non-tender, full range of motion, supple Respiratory: decreased breath sounds Cardiac/Chest: irregularly irregular Abdomen: normal bowel sounds, non-tender, soft Skin: pallor Extremities: swelling Neuro/Psych: no motor/sensory deficits, alert, normal mood/affect ICD10 Worksheet Patient Problems: Problems Problem Status Onset Acute on chronic blood loss anemia Acute Aortic valve stenosis with insufficiency Acute ESRD (end stage renal disease) on dialysis Acute S/P CABG x 4 Acute S/P aortic valve replacement with bioprosthetic valve Acute Status post ligation of left atrial appendage Acute
[2018-09-27] MEDS ORDERED: WARFARIN SODIUM 2.5 MG TAB PO ONE (16:00)
[2018-09-27] MEDS ORDERED: WARFARIN SODIUM 2 MG TAB PO ONE (16:00)
[2018-09-27] MEDS: TERAZOSIN HCL 2 MG CAP PO SCH (20:04)
[2018-09-27] MEDS: ATORVASTATIN CALCIUM 10 MG TAB PO SCH (20:05)
[2018-09-28] MEDS: CALCIUM ACETATE 667 MG CAP PO SCH ×2 (07:33→13:04)
[2018-09-28] MEDS: ASPIRIN 81 MG CHEWABLE TAB PO SCH (07:33)
[2018-09-28] MEDS: AMIODARONE HCL 200 MG TAB PO SCH ×2 (07:33→14:40)
[2018-09-28] MEDS: FLUTICASONE NASAL 120 SPRAYS/16 GM MDI EACHNARE SCH (07:34)
[2018-09-28] MEDS: PANTOPRAZOLE SODIUM 40 MG TAB PO SCH (07:34)
[2018-09-28] MEDS ORDERED: MIDODRINE HCL 5 MG TAB PO ONE ×2 (08:15→10:45)
--- NOTE | 2018-09-28 08:38 | SOAPPROG ---
SOAP Progress Note Assessment/Plan: Assessment: POD#10 AVR#25 Magna bioprosthesis, CABG x 4 (REYES-LAD, SV-OM1, SV- OM2, SV-RCA), endoscopic eval of BLE vein - only rt leg harvested, prophylactic suture ligation NATO PPD#4 Left thoracentesis for 200 ml Sx severe CAD w preserved LV systolic fx - Fully revascularized with CABG. No prolonged pressor support. No delay to extubation. CTs and TCPWs out. Moderate volume overload removed w UF. Small residual left pleural effusion evacuated by thoracentesis. Secondary prevention with ASA and statin. Significant hypotension on metoprolol and further use of BB deferred. Severe /AI - s/p tissue AVR. Antithrombotic prophylaxis with Coumadin. Target INR 2-3, duration 8 wks pending stability of rhythm. Acute expected blood loss anemia with thrombocytopenia and coagulopathy - Stable s/p 5u PRBC. Precautionary HIT neg. Sufficient plt count rebound to resume low dose ASA. VTE prophylaxis with SCDs/coumadin. Postop PAF - Conversion to SR with amiodarone. Intermittent recurrence of AF w CVR accepted as insufficient BP for adjunctive BB. Antithrombotic prophylaxis with coumadin for [id number] 4. Postop sinusitis - Congestion and nasal drip similar to past episodes. Course of Zithromax completed with good effect. ESRD on PD - PD on hold x 4 weeks while sternotomy/CT sites heal. Use of mature LUE AVF/fluid management per nephrology. Skilled for SNF by PT. Hx HTN - Preop control with combination therapy. Preferential use of BB when appropriate, with staggered reintro of remaining meds as tolerated. Plan: Cont amio 200 mg BID. Cont coumadin 2 mg daily. Dispo - [facility] (w [facility] in [place]) after dialysis today. 09/28/18 08:36 Subjective: Comfortable. No acute concerns. Objective: Vital Signs Temp Pulse Resp BP Pulse Ox 36.7 C 88 17 110/68 98 09/28/18 07:39 09/28/18 07:39 09/28/18 07:39 09/28/18 07:39 09/28/18 07:39 Laboratory Results 09/27/18 06:30 09/27/18 06:30 09/27/18 09/28/18 09/29/18 05:59 05:59 05:59 Intake Total 850 1200 Output Total 400 300 Balance 450 900 PT 21.7 SEC (12.0-15.0) H 09/27/18 06:30 INR 2.00 (0.83-1.16) H 09/27/18 06:30 Physical Exam - Physical Exam General Appearance: alert, no apparent distress Respiratory: lungs clear (grossly), other (CT sites clean and moist) Cardiac/Chest: regular rate, rhythm, other (Sternotomy and bilat leg incisions CDI) Abdomen: non-tender, soft, other (PD cath intact) Skin: warm/dry Extremities: swelling (1+ RLE (donor leg), no edema LLE) ICD10 Worksheet Patient Problems: Problems Problem Status Onset Acute on chronic blood loss anemia Acute Aortic valve stenosis with insufficiency Acute ESRD (end stage renal disease) on dialysis Acute S/P CABG x 4 Acute S/P aortic valve replacement with bioprosthetic valve Acute Status post ligation of left atrial appendage Acute
[2018-09-28] MEDS: ALBUMIN 25% 50 ML IV PRN (08:49)
[2018-09-28 10:11] LABS: INR 2.19 (0.83-1.16); PROTIME(PATIENT) 23.3 SEC (12.0-15.0)
--- NOTE | 2018-09-28 11:31 | PDIAF ---
- Diagnosis Diagnosis: ,CAD,ESRD on PD s/p tissue AVR, CABG, hemodialysis with LUE AVF Code Status: Full Code - Medication Management Additional Medication Instructions: hold aspirin for INR > 3. hold amiodarone for HR < 50. accept SpO2 90% Discharge Medications: electronically signed and located in the Home Medication List. PIC Care - Routine: N/A - Orders Services needed: Registered Nurse (cardiorespiratory and therapeutic drug monitoring), Physical Therapy (cardiac rehab with sternal precautions), Occupational Therapy (until functionally independent) Isolation Type: None Oxygen: prn SpO2 < 90% Diet Recommendation: potassium restricted (renal diet), fluid restriction (use comment for amount) (1800 ml daily) Diet Texture: Regular Texture Diet, Thin Liquids, Meds Whole in Puree Weigh Patient: daily [place]: Not applicable Wound Care Instructions: daily soap and water. no ointments. ok to leave open to air Activity/Weight Bearing Restrictions: Sternal precautions x 3 more weeks. Avoid push pull activities. Avoid lifting > 10 lbs with an outstretched arm. Additional Instructions: Call [facility] cardiac rehab to enroll in phase 2 classes at [facility] once released from [facility]. Sternal precautions x 3 more weeks. Avoid lifting > 10lbs with an outstretched arm. Avoid push/pull activities. Cleanse wounds once daily with soap and water. Avoid underwater immersion (pool , hot tub, bath) until scabs off. Ok to leave all wounds open to air. Avoid creams or ointments until scabs off. Elevate low legs at rest. Avoid prolonged standing or dangling. Log daily vital signs: weight, resting heart rate over 1 minute, blood pressure , +/- pulse oximetry. Call [facility] for overnight weight gain > 2lbs, weekly gain > 5lbs or worsening leg swelling. Call [facility] for resting heart rate > 120 OR for systolic blood pressure consistently < 90 or > 140. Target oxygen saturation > 89%. Please obtain a chest xray prior to surgical appointment. Use requisition form attached to appointment card. Chest x-rays don't require an appointment. Go to the Emergency Room entrance at the [facility] location. Sign in at the computer kiosk in the entryway. You will be given a number & may sit in the waiting area until called. You will be registered and directed to Imaging on the 1st floor. This process can take up to an hour. Please allow at least 30 min before your appt to get x-ray taken. Ok to use [id number] medications for iron supplementation, bowel function or pain. Consider Tylenol 500-650 mg with meals and before bed. Max daily dose of Tylenol 3000 mg. Hold aspirin for INR > 3. Lifelong antibiotic prophylaxis prior to dental, respiratory tract, or skin/ soft tissue procedures. - Labs/Radiology PT/INR Date: 10/01/18 (2x weekly until INR stable in therapeutic range) Imaging Orders: Chest xray prior to surgical appointment Call or Fax Lab and Imaging Results to: Dr Castillo's office if INR < 1.5 or > 3 - Follow Up Care Current Providers and Referrals: Des Castillo DO [Doctor of Osteopathy] - 10/06/18 11:30 am Madhav Reed MD [Primary Care Provider] - Lukasz Louie MD [Medical Doctor] - (Followup in 4 weeks. Appt to be established during surgical visit.)
[2018-09-28 12:26] VITALS: BP 127/76
--- NOTE | 2018-09-28 12:36 | PDDCSUM ---
Discharge Summary Discharge Summary: DATE OF ADMISSION: 09/18/18 DATE OF DISCHARGE: 09/28/18 DISPOSITION: Transferred to [facility] in [place], PRINCIPAL DISCHARGE DIAGNOSES: 1. Severe aortic valve stenosis with insufficiency treated with aortic valve replacement with a bioprosthesis 2. Severe multivessel coronary artery disease treated with coronary artery bypass grafting x 4 3. Acute expected blood loss anemia with thrombocytopenia and coagulopathy 4. Postoperative paroxysmal atrial fibrillation status post exclusion of the left atrial appendage 5. Postoperative sinusitis 6. Conversion of peritoneal dialysis to hemodialysis FOLLOW UP APPOINTMENTS: 1. CV surgery: with Dr Castillo at [facility] on 10/06 at 11:30 am. 2. Cardiology: with Dr Louie at [facility] within 4-6 weeks. Appointment to be established during surgical visit. 3. Dialysis at [facility] under Dr Richardson on 09/30 at 10:00 am. FOLLOW UP TESTIN. Labwork per nephrology. 2. CXR prior to surgical appointment. ALLERGIES/SENSITIVITIES: Penicillins causing dizziness/presyncope DISCHARGE MEDICATIONS: see medical administration record for full details Essentially as on admission (ASA 40.5, Terazosin, Vit D3) with the following adjustments: 1. Hold Norvasc 2.5 mg HS 2. Hold Cozaar 25 mg daily 3. Hold herbal supplements NEW prescriptions: 1. Amiodarone 200 mg BID 2. Atorvastatin 10 mg HS 3. Phoslo 667 mg TID 4. Procrit 10,000 units SC once weekly on dialysis 5. Flonase nasal spray 2 puffs each nares daily 6. Tramadol 25 mg q6h prn incisional discomfort 7. Coumadin 2 mg daily or as directed by INR 8. Oxygen at 1 Lpm continuously or as directed by SpO2 CONSULTANTS: Pulmonology/critical care (Juan), Nephrology (Oumou) PROCEDURES/IMAGIN/15 (Jonathan): Aortic valve replacement with a 25 mm Braxton Magna bovine pericardial bioprosthesis. Coronary artery bypass grafting x 4 (REYES-LAD, SV-OM1 , SV-OM2, SV-RCA). Takedown left internal mammary artery. Endoscopic vein evaluation BLE but only RLE harvested. Prophylactic suture ligation of left atrial appendage. 09/24 (Tomasz): Ultrasound guided left thoracentesis for 200 ml 09/24 Venous ultrasound LUE: patent veins and fistula 09/24 (Blois): Transthoracic echocardiogram: Mild LVE with LVEF 45%. Grade 1 diastolic dysfx. Normal RV size and systolic fx. Normal bioprosthetic aortic valve fx. Mild RIN. Mild MR. Trivial TR. HISTORY OF PRESENT ILLNESS: 83 yo active male with severe , declining stamina, and worsening exertional dyspnea discovered during TAVR workup to have complex multivessel coronary artery disease not amenable to PCI and admitted for elective AVR/CABG. PERTINENT PAST MEDICAL HISTORY: ESRD on PD 3x daily (functional left forearm AVF not in use), HTN, anemia of chronic disease, osteoarthritis ABBREVIATED HOSPITAL COURSE BY ACTIVE PROBLEM LIST: 1. Sx severe CAD w preserved LV systolic fx - Fully revascularized with CABG. Moderate volume overload removed w UF. Small residual left pleural effusion evacuated by thoracentesis. Secondary prevention with ASA and statin. Significant hypotension on metoprolol and further use of BB deferred. 2. Severe /AI - s/p tissue AVR. Antithrombotic prophylaxis with Coumadin. Target INR 2-3, duration 8 wks pending stability of rhythm. 3. Acute expected blood loss anemia with thrombocytopenia and coagulopathy - Stable s/p 5u PRBC. Precautionary HIT neg. Sufficient platelet count rebound to resume low dose ASA. 4. Postop PAF - Conversion to SR with amiodarone. Intermittent recurrence of AF w CVR accepted as insufficient BP for adjunctive BB. Antithrombotic prophylaxis with coumadin for [id number] 4. 5. Postop sinusitis - Congestion and nasal drip similar to past episodes. Course of Zithromax completed with good effect. Maintained on Flonase. 6. ESRD on PD - PD on hold x 4 weeks while sternotomy/CT sites heal. Use of mature LUE AVF compl by mild dependent edema responsive to elevation. Fluid management per nephrology. Skilled for SNF by PT. 7. Hx HTN - Preop control with combination therapy. Use of antihypertensives postop negated by soft SBPs. Midodrin used prn on HD. Recovery of elev BPs expected. Preferential use of BB when appropriate, with staggered reintro of remaining meds as tolerated.
--- NOTE | 2018-09-28 13:13 | ASMTLACE ---
LACE Length of stay for Answers: 7-13 days current admission Acuity / Level of Answers: Yes Care: Did the patient have an inpatient admission? Comorbidities - select Answers: Congestive heart failure all that apply Coronary Artery Disease Moderate or severe liver or renal disease Other Notes: HTN # of Emergency department Answers: 0 visits in the last 6 months Score: 17 Date Signed: 09/28/2018 01:13 PM Electronically Signed By:Lawanda Hammer RN
--- NOTE | 2018-09-28 13:31 | ASMTDCNOTE ---
Case Management Discharge Discharge Order Complete? Answers: Yes Patient to Obtain Answers: Other Notes: [facility] Medications Transportation Arranged Answers: Other Notes: [facility] Transport will Pick (Date 09/28/2018 02:30 PM & Time) Faxed Final Orders Answers: Yes Family Notified Answers: Yes Discharge Comments Notes: [facility] Transport arranged by Latonia @ [facility]. Dialysis at [facility] beginning 09/30. LUPE Gaxiola to call report. Date Signed: 09/28/2018 01:30 PM Electronically Signed By:Lawanda Hammer RN
[2018-09-28] MEDS: ATORVASTATIN CALCIUM 10 MG TAB PO SCH (14:39)
[2018-09-28] MEDS: TERAZOSIN HCL 2 MG CAP PO SCH (14:40)
[2018-09-28] MEDS ORDERED: WARFARIN SODIUM 2 MG TAB PO SCH (16:00)
== END 2018-09-28 14:45 | DRG 219 ==
LOC: F2W 05:46 → F2N 10:32
PROVIDERS: ADMIT Thoracic Surgery (Cardiothoracic Vascular Surgery); ATTEND Thoracic Surgery (Cardiothoracic Vascular Surgery)
PROC: 021209W Bypass Coronary Artery, Three Arteries from Aorta with Autologous Venous Tissue, Open Approach (ICD-10-PCS; principal; 2018-09-18 07:15)
PROC: 06BQ4ZZ Excision of Left Saphenous Vein, Percutaneous Endoscopic Approach (ICD-10-PCS; principal; 2018-09-18 07:15)
PROC: 02100Z9 Bypass Coronary Artery, One Artery from Left Internal Mammary, Open Approach (ICD-10-PCS; principal; 2018-09-18 07:15)
PROC: 02L70ZK Occlusion of Left Atrial Appendage, Open Approach (ICD-10-PCS; principal; 2018-09-18 07:15)
PROC: 02RF08Z Replacement of Aortic Valve with Zooplastic Tissue, Open Approach (ICD-10-PCS; principal; 2018-09-18 07:15)
PROC: 5A1221Z Performance of Cardiac Output, Continuous (ICD-10-PCS; principal; 2018-09-18 07:15)
PROC: 30233N1 Transfusion of Nonautologous Red Blood Cells into Peripheral Vein, Percutaneous Approach (ICD-10-PCS; 2018-09-18 07:15)
PROC: 5A1D70Z Performance of Urinary Filtration, Intermittent, Less than 6 Hours Per Day (ICD-10-PCS; 2018-09-19)
PROC: 0W9B4ZZ Drainage of Left Pleural Cavity, Percutaneous Endoscopic Approach (ICD-10-PCS; 2018-09-24)
DX: I35.0 Nonrheumatic aortic (valve) stenosis (principal); I12.0 Hypertensive chronic kidney disease with stage 5 chronic kidney disease or end stage renal disease; N18.6 End stage renal disease; D62 Acute posthemorrhagic anemia; J90 Pleural effusion, not elsewhere classified; I25.10 Atherosclerotic heart disease of native coronary artery without angina pectoris; I34.0 Nonrheumatic mitral (valve) insufficiency; I35.1 Nonrheumatic aortic (valve) insufficiency; D69.6 Thrombocytopenia, unspecified; J01.90 Acute sinusitis, unspecified; I48.0 Paroxysmal atrial fibrillation; Z99.2 Dependence on renal dialysis
CPT/HCPCS: 82435-PO; 82565-PO; 82947-PO; 83605-ER; 84132-PO; 84295-PO; 84520-PO; 85014-ER; 86022-90; 92610-GN; 92611-GN; 97110-GP; 97116-GP; 97162-GP; 97165-GO; 97530-GO; 97530-GP; J0153; J0282; J0690; J0885; J1265; J1644; J1815; J1940; J2001; J2150; J2250; J2260; J2270; J2310; J2370; J2405; J2440; J2704; J2710; J2720; J2930; J3010; J3370; J3475; P9016; P9021; P9041; P9047

== ENCOUNTER → 2018-10-06 | Outpatient (CLI) | payer OTHER | LOC: FIMAGING 12:13 | PROVIDERS: ATTEND Thoracic Surgery (Cardiothoracic Vascular Surgery) | DX: I51.7 Cardiomegaly (principal); R91.8 Other nonspecific abnormal finding of lung field; J90 Pleural effusion, not elsewhere classified; Z95.1 Presence of aortocoronary bypass graft; Z95.2 Presence of prosthetic heart valve ==

== ENCOUNTER → 2018-10-13 | Outpatient (CLI) | payer OTHER | LOC: FIMAGING 11:17 | PROVIDERS: ATTEND Thoracic Surgery (Cardiothoracic Vascular Surgery) | DX: J90 Pleural effusion, not elsewhere classified (principal); J98.11 Atelectasis; Z95.1 Presence of aortocoronary bypass graft; Z95.2 Presence of prosthetic heart valve ==

== ENCOUNTER → 2018-10-14 | Outpatient (CLI) | payer OTHER | LOC: FIMAGING 08:02 | PROVIDERS: ATTEND Thoracic Surgery (Cardiothoracic Vascular Surgery) | PROC: 0W9B3ZZ Drainage of Left Pleural Cavity, Percutaneous Approach (ICD-10-PCS; principal; 2018-10-14) | DX: J90 Pleural effusion, not elsewhere classified (principal) ==

== ENCOUNTER → 2018-10-20 | Outpatient (CLI) | payer OTHER | LOC: FIMAGING 11:02 | PROVIDERS: ATTEND Thoracic Surgery (Cardiothoracic Vascular Surgery) | DX: J90 Pleural effusion, not elsewhere classified (principal); I51.7 Cardiomegaly ==

== ENCOUNTER → 2018-10-27 | Outpatient (CLI) | payer OTHER | LOC: FIMAGING 11:47 | DX: J98.11 Atelectasis (principal); J90 Pleural effusion, not elsewhere classified ==